=== PATIENT | female | born 1945 | race Hispanic/Latino ===

== ENCOUNTER 2017-09-01 16:32 | Emergency (ER) | payer MEDICARE ==
[~2017-09-01] VITALS: Ht 142.2 cm; Wt 55.8 kg
[2017-09-01] MEDS ORDERED: PANTOPRAZOLE SO40 MG PO ×2 (17:31→19:00)
[2017-09-01] MEDS ORDERED: DONEPEZIL PO (17:31)
[2017-09-01] MEDS ORDERED: LISINOPRIL10 MG PO (17:31)
[2017-09-01] MEDS ORDERED: VALTREX500 MG PO (17:31)
[2017-09-01] MEDS ORDERED: [UNRECOGNIZED DRUG - OTHER] PO (17:31)
[2017-09-01] MEDS ORDERED: IMITREX25 MG (17:31)
[2017-09-01 18:57] VITALS: BP 148/79
== END 2017-09-01 19:00 | disposition home or self-care (01) ==
LOC: FSED 16:32
DX: R10.12 Left upper quadrant pain (principal); K29.00 Acute gastritis without bleeding
CPT/HCPCS: 71045; 74177; 80053; 81003; 85025; 93005; 99284

== ENCOUNTER 2018-06-17 17:39 | Emergency (ER) | payer MEDICARE ==
[~2018-06-17] VITALS: Ht 142.2 cm; Wt 55.8 kg
[~2018-06-17 17:39] MED LIST: DONEPEZIL PO; IMITREX25 MG; LISINOPRIL10 MG PO; PANTOPRAZOLE SO40 MG PO; VALTREX500 MG PO; [UNRECOGNIZED DRUG - OTHER] PO
--- OUTSIDE RECORDS SUMMARY | 2018-06-17 17:43 | XMS REPORT | Clinical Summary ---
Author Author [facility] Address Unknown Phone Unavailable Care Team Providers Care Acid Maker Name Role Phone Sharpless PCP Allergies No Known Allergies Medications End Date Status Medication Sig Dispensed Refills Start Date Active donepezil (ARICEPT) 10 MG Take 10 mg by 0 tablet mouth nightly. Active pravastatin (PRAVACHOL) Take 10 mg by 0 10 MG tablet mouth daily. Active lisinopril Take 5 mg by 0 (PRINIVIL,ZESTRIL) 10 MG mouth daily . tablet Active nortriptyline (PAMELOR) Take 10 mg by 0 10 MG capsule mouth nightly Take 3 tablets every night . Active aspirin 81 MG chewable Take 81 mg by 0 tablet mouth daily. Active SUMAtriptan (IMITREX) 100 Take 100 mg 0 MG tablet by mouth as needed for Headaches. Active valACYclovir (VALTREX) Take 500 mg 0 500 MG tablet by mouth daily. Active ondansetron (ZOFRAN) 8 MG Take 8 mg by 0 tablet mouth every 8 (eight) hours as needed for Nausea. Active escitalopram oxalate TK 1 T PO QD 3 (LEXAPRO) 10 MG tablet 7 Active pimavanserin (NUPLAZID) Take 17 mg by 0 17 mg Tab mouth daily. Active HYDROcodone-acetaminophen Take 1 tablet 0 (NORCO 5-325) 5-325 mg by mouth per tablet every 6 (six) hours as needed for Pain. Active sulfamethoxazole-trimetho Take 1 tablet 0 prim (BACTRIM DS) 800-160 by mouth 2 mg per tablet (two) times daily. Active docusate sodium (COLACE) Take 100 mg 0 100 MG capsule by mouth 2 (two) times daily. 04/20/2018 acetaminophen (TYLENOL) Take 2 30 tablet 0 325 MG tablet tablets (650 8 mg total) by mouth every 6 (six) hours as needed for Pain for up to 360 days. 05/02/2018 pantoprazole (PROTONIX) Take 1 tablet 20 tablet 0 40 MG tablet (40 mg total) 8 by mouth daily. 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 Etiology is unclear but could be due to NAFLD. Her risk factors for NAFLD are obesity and hyperlipidemia. We will order comprehensive labs to look for other causes of cirrhosis. Regarding risk of surgery, patient doesn't have signs of decompensation or clinically significant portal HTN. She is Child-Best A. The 30 day mortality is estimated to be between 8-10%. The main risks for surgery will be bleeding and cirrhosis decompensation. Portal hypertension 04/02/2017 Last Assessment & Plan: Patient has mild splenomegaly and borderline thrombocytopenia, no sign of clinically significant portal HTN. Esophageal varices screening 04/02/2017 Last Assessment & Plan: Recent EUS did not show varices or signs of PHG. She will need a repeat EGD in 2-3 years. Immunity status testing 04/02/2017 Last Assessment & Plan: CDC recommends that all patients with chronic liver disease, regardless of etiology, should be immunized to prevent hepatitis A and hepatitis B if they are not already immune. This should be done in addition to other age-appropriate vaccines. We will test for immunity to both viruses - vaccine recommendations will follow. 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 Patient is following up with Dr. Rocha and Dr. Santamaria and plan is to do surgery and neoadjuvant chemoradiation. Screening for malignant neoplasm 04/02/2017 Last Assessment & Plan: Cirrhosis, regardless of etiology, is a risk factor for development of hepatocellular carcinoma (HCC). The annual incidence of HCC varies from 2-4%. 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 Family History Medical History Relation Name Comments Cancer Brother Diabetes Brother Hypertension Brother Diabetes Brother Hypertension Brother Diabetes Father Cancer Mother Diabetes Sister Relation Name Status Comments Brother Alive Brother Alive Father Mother Sister Alive Social History Date Tobacco Use Types Packs/Day Years Used Never Smoker Smokeless Tobacco: Never Used Alcohol Use Drinks/Week oz/Week Comments No Sex Assigned at Date Recorded Not on file Industry Job Start Date Occupation Not on file Not on file Not on file Travel End Travel History Travel Start No recent travel history available. Last Filed Vital Signs Not on file Plan of Treatment Not on file Implants Device Identifier Shelf Expiration Date Model / Serial / Lot Implanted Type Area Manufactur er 12/28/2018 [id number] / / [id number] Stent Bili Duodenal [id number] Stents-Per N/A: Bile Duct [place] - [id number] ipheral SCI:ENDO Implanted: Qty: 1 on 02/26/2017 by Meredith Dwyer MD Results Not on fileafter 06/16/2017 Insurance Payer Benefit Subscriber ID Type Phone Address Plan / Group MEDICARE MEDICARE A xxxxxxxxxx Medicare B MEDICAID - MEDICAID [facility] xxxxxxxxx Medicaid CARE COMM STAR Contracted PLAN Advance Directives Patient has advance care planning documents, and code status on file. For more i nformation, please contact: [address] [address] Date Inactivated Comments Code Status Date Activated 04/25/2017 6:23 PM Full Code 04/21/2017 8:59 PM This code status was determined by: Patient 04/21/2017 8:58 PM Full Code 04/21/2017 6:29 AM This code status was determined by: Patient 02/27/2017 7:36 PM Full Code 02/24/2017 10:22 PM This code status was determined by: Patient
--- OUTSIDE RECORDS SUMMARY | 2018-06-17 17:44 | XMS REPORT | Continuity of Care Document ---
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 [facility] Ruptured cerebral aneurysm<sup>1, 2</sup> Active 06/29/2011 Problem 06/25/2017 Data migrated from [employer] on 10/16/14. [facility] [place] Aneurysm Active Problem 07/14/2013 JENY Dumont Atherosclerosis of aorta<sup>1</sup> Active Problem 09/04/2017 seen on [facility] Chronic diastolic heart failure Active Problem 09/04/2017 [facility] Cirrhosis, non-alcoholic Active Problem 09/04/2017 [facility] Chronic GERD Active Problem 09/04/2017 [facility]ache [facility] SAH (<span ID="[id number]">Confirmed</span>) Resolved Problem 09/04/2017 [facility], Bj,[facility] [place] Herpes simplex Active Problem 09/04/2017 [facility] Hypertensive heart failure Active Problem 09/04/2017 [facility] Hyperlipemia, mixed Active Problem 09/04/2017 [facility] Alzheimer's dementia, late onset Active Problem 09/04/2017 [facility] 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 Problem 09/04/2017 [facility] Headache Active Problem 06/25/2017 JENY Dumont,[facility] HTN - Hypertension Active Problem 06/25/2017 JENY Dumont,[facility] HLD (<span ID="[id number]">Confirmed</span>) Resolved Problem 06/25/2017 [facility], [place] HTN (<span ID="[id number]">Confirmed</span>) Resolved Problem 06/25/2017 [facility], [place] Dementia Resolved Problem 06/25/2017 [facility], [place] SAH - Subarachnoid hemorrhage Active Problem 06/25/2017 JENY Dumont,[facility] Headache Active Problem 09/17/2016 JENY Dumont,[facility] HTN - Hypertension Active Problem 09/17/2016 JENY Dumont,[facility] SAH - Subarachnoid hemorrhage Active Problem 09/17/2016 JENY Dumont,[facility] Headache Active Problem 09/27/2016 JENY Dumont,[facility] HTN - Hypertension Active Problem 09/27/2016 JENY Dumont,[facility] SAH - Subarachnoid hemorrhage Active Problem 09/27/2016 JENY Dumont,[facility] Headache Active Problem 02/27/2017 JENY Dumont, [place] HTN - Hypertension Active Problem 02/27/2017 JENY Dumont, [place] SAH - Subarachnoid hemorrhage Active Problem 02/27/2017 JENY Dumont, [place] CHEST PAIN, UNSPECIFIED Active [facility] Medications Medication Details Route Status Patient Instructions Ordering Provider Order Date Source lisinopril 5 mg oral tablet 5 mg=1 tab, PO, Bedtime, for blood pressure, # 90 tab, 1 Refill(s), Pharmacy: [facility] [id number] Active 07/20/2017 [facility] pravastatin 10 mg oral tablet 10 mg=1 tab, PO, Bedtime, for cholesterol, # 90 tab, 3 Refill(s), Pharmacy: [place] [id number] Active 07/20/2017 [facility] ondansetron 4 mg oral tablet 4 mg=1 tab, PO, BID, # 10 tab, 0 Refill(s) Active 07/20/2017 [facility] meclizine 25 mg oral tablet 25 mg=1 tab, PO, TID, PRN for dizziness, X 20 day, # 60 tab, 0 Refill(s) Active 06/22/2017 [place] NS (Bolus) IV 500 mL, 500 ml/hr, Infuse Over: 1 hr, Route: IV, ONCE, Priority: STAT, Dosing Weight 60.004 kg, Start date: 06/22/17 16:05:00 CDT, Stop date: 06/22/17 16:05:00 CDT Inactive 06/22/2017 [facility] Saline Flush 0.9% 10 mL, Route: IVP, Drug Form: INJ, Dosing Weight 60.004, kg, PRN, PRN Line Flush, Start date: 06/22/17 11:02:00 CDT, Duration: 30 day, Stop date: 07/22/17 11:01:00 CDTNotes: (Same as: BD Posiflush) Inactive 06/22/2017 [facility] Docusate 100 mg, 1 cap, Route: PO, Drug form: CAP, BID, Dosing Weight 70.938, kg, Start date: 02/24/17 9:00:00 DINING ROOM COORDINATOR, Duration: 30 day, Stop date: 03/25/17 17:00:00 CSTNotes: (Same as: Colace) (Do Not Crush) Inactive 02/24/2017 [place] Protonix 40 mg, 1 tab, Route: PO, Drug form: ECTAB, Before Breakfast, Dosing Weight 70.938, kg, Start date: 02/24/17 7:30:00 DINING ROOM COORDINATOR, Duration: 30 day, Stop date: 03/25/17 7:30:00 CSTNotes: Tablet should not be c hewed or crushed. (Same as: Protonix) Inactive 02/24/2017 [place] Flagyl 500 mg, 100 mL, Route: IVPB, Drug form: INJ, Q8H, Dosing Weight 70.938, kg, Start date: 02/23/17 22:00:00 DINING ROOM COORDINATOR, Duration: 7 day, Stop date: 03/02/17 14:00:00 DINING ROOM COORDINATOR, ABX Indication: Intra-abdominal Infec tionNotes: (Same as: Flagyl) Avoid alcohol. No Longer Active 02/24/2017 [place] Ciprofloxacin 400 mg, 200 mL, Route: IVPB, Drug form: INJ, Q12H, Dosing Weight 70.938, kg, Start date: 02/23/17 21:00:00 DINING ROOM COORDINATOR, Duration: 7 day, Stop date: 03/02/17 9:00:00 DINING ROOM COORDINATOR, ABX Indication: Intra-abdominal Infec tionNotes: Do not refrigerate No Longer Active 02/24/2017 [place] Lexapro 10 mg, PO, Daily, 0 Refill(s) Active 02/24/2017 [place] valacyclovir 500 mg, PO, Daily, # 21 tab, 0 Refill(s) Active 02/24/2017 [place] Sodium Chloride 0.9% IV 1,000 mL 1,000 mL, Rate: 75 ml/hr, Infuse over: 13.3 hr, Route: IV, Dosing Weight 70.938 kg, Total Volume: 1,000, Start date: 02/23/17 19:48:00 DINING ROOM COORDINATOR, Duration: 30 day, Stop date: 03/25/17 19:47:00 DINING ROOM COORDINATOR, 1.76, m2 No Longer Active 02/24/2017 [place] Saline Flush 0.9% 10 ml, Route: IVP, Drug Form: INJ, Dosing Weight 70.938, kg, PRN, PRN Line Flush, Start date: 02/23/17 19:48:00 DINING ROOM COORDINATOR, Duration: 30 day, Stop date: 03/25/17 19:47:00 CSTNotes: (Same as: BD Posiflush) No Longer Active 02/24/2017 [place] Ondansetron 4 mg, 2 mL, Route: IVP, Drug form: INJ, Q6H, Dosing Weight 70.938, kg, PRN Nausea & Vomiting, Start date: 02/23/17 19:48:00 DINING ROOM COORDINATOR, Duration: 30 day, Stop date: 03/25/17 19:47:00 CSTNotes: (Same as: Zofran) MEDICATION WASTE Product Size: 4 mg Product Wasted: ___ mg No Longer Active 02/24/2017 [place] Morphine 2 mg, 1 mL, Route: IVP, Drug form: INJ, Q4H, Dosing Weight 70.938, kg, PRN Pain Score 7-10, Start date: 02/23/17 19:48:00 DINING ROOM COORDINATOR, Duration: 30 day, Stop date: 03/25/17 19:47:00 CSTNotes: (Same as:MORPhine Sulfate) No Longer Active 02/24/2017 [place] Zofran 4 mg, Route: IVP, Drug form: INJ, ONCE, Dosing Weight 70.938, kg, Priority: STAT, Start date: 02/23/17 18:01:00 DINING ROOM COORDINATOR, Stop date: 02/23/17 18:01:00 DINING ROOM COORDINATOR Inactive 02/24/2017 [place] Morphine 4 mg, Route: IVP, ONCE, Dosing Weight 70.938, kg, Priority: STAT, Start date: 02/23/17 18:01:00 DINING ROOM COORDINATOR, Stop date: 02/23/17 18:01:00 DINING ROOM COORDINATOR Inactive 02/24/2017 [place] Ondansetron 4 mg, Route: IVP, ONCE, Dosing Weight 70.938, kg, Priority: STAT, Start date: 02/23/17 14:57:00 DINING ROOM COORDINATOR, Stop date: 02/23/17 14:57:00 DINING ROOM COORDINATOR Inactive 02/23/2017 [place] Morphine 4 mg, Route: IVP, ONCE, Dosing Weight 70.938, kg, Priority: STAT, Start date: 02/23/17 14:57:00 DINING ROOM COORDINATOR, Stop date: 02/23/17 14:57:00 DINING ROOM COORDINATOR Inactive 02/23/2017 [place] Saline Flush 0.9% 10 mL, Route: IVP, Drug Form: INJ, Dosing Weight 70.938, kg, PRN, PRN Line Flush, Start date: 02/23/17 14:57:00 DINING ROOM COORDINATOR, Duration: 30 day, Stop date: 03/25/17 14:56:00 CSTNotes: (Same as: BD Posiflush) No Longer Active 02/23/2017 [place] Sodium Chloride 0.9% (Bolus) IV 1,000 mL, Infuse Over: 1 hr, Route: IV, ONCE, Priority: STAT, Dosing Weight 70.938 kg, Start date: 02/23/17 14:57:00 DINING ROOM COORDINATOR, Stop date: 02/23/17 14:57:00 DINING ROOM COORDINATOR Inactive 02/23/2017 [place] Pamelor 30 mg, 3 cap, Route: PO, Drug form: CAP, Bedtime, Start date: 02/17/17 21:00:00 DINING ROOM COORDINATOR, Duration: 30 day, Stop date: 03/18/17 21:00:00 CSTNotes: (Same as:Pamelor Aventyl) Inactive 02/18/2017 [place] Ondansetron 8 MG Disintegrating Tablet [Zofran] 8 mg=1 tab, PO, TID, PRN Nausea and Vomiting, Dissolve tab under tongue, # 10 tab, 0 Refill(s) Active 02/17/2017 [place] Metronidazole 500 MG Oral Tablet [Flagyl] 500 mg=1 tab, PO, Q8H, X 7 day, # 21 tab, 0 Refill(s) Active 02/17/2017 [place] Ciprofloxacin 500 MG Oral Tablet [Cipro] 500 mg=1 tab, PO, Q12H, X 7 day, # 14 tab, 0 Refill(s) Active 02/17/2017 [place] pantoprazole 40 mg oral enteric coated tablet 40 mg=1 tab, PO, Daily, # 30 tab, 0 Refill(s) Active 02/17/2017 [place] acetaminophen 325 mg oral tablet 650 mg=2 tab, PO, Q4H, PRN Pain 1-3/Temp > 100.4 F, 0 Refill(s) Active 02/17/2017 [place] Protonix 40 mg, Route: IVP, Drug form: INJ, Daily, Dosing Weight 71.5, kg, Start date: 02/17/17 9:00:00 DINING ROOM COORDINATOR, Duration: 30 day, Stop date: 03/18/17 9:00:00 CSTNotes: For IV push reconstitute with 10 ml 0.9% sodium chloride and push over 2 minutes. (Same as: Protonix) Inactive 02/17/2017 [facility] Lisinopril 10 mg, 1 tab, Route: PO, Drug form: TAB, Daily, Dosing Weight 71.5, kg, Start date: 02/17/17 9:00:00 DINING ROOM COORDINATOR, Duration: 30 day, Stop date: 03/18/17 9:00:00 CSTNotes: (Same as: Prinivil Zestril) Inactive 02/17/2017 [place] Insulin Lispro 8 unit, Route: SUB-Q, Q4H, Dosing Weight 71.5, kg, PRN Blood Glucose Results, Start date: 02/17/17 8:23:00 DINING ROOM COORDINATOR, Duration: 30 day, Stop date: 03/19/17 8:22:00 DINING ROOM COORDINATOR Inactive 02/17/2017 [place] Dextrose 50% Syringe 25 mL, Route: IVP, Dosing Weight 71.5, kg, PRN, PRN Blood Glucose Results, Start date: 02/17/17 8:23:00 DINING ROOM COORDINATOR, Duration: 30 day, Stop date: 03/19/17 8:22:00 DINING ROOM COORDINATOR Inactive 02/17/2017 [place] Glucagon 1 mg, Route: IM, PRN, Dosing Weight 71.5, kg, PRN Blood Glucose Results, Start date: 02/17/17 8:23:00 DINING ROOM COORDINATOR, Duration: 30 day, Stop date: 03/19/17 8:22:00 DINING ROOM COORDINATOR Inactive 02/17/2017 [place] Pamelor 25 mg, 1 cap, Route: PO, Drug form: CAP, ONCE, Start date: 02/16/17 22:00:00 DINING ROOM COORDINATOR, Stop date: 02/16/17 22:00:00 CSTNotes: (Same as:Pamelor, Aventyl) Inactive 02/17/2017 [place] donepezil 10 mg, 2 tab, Route: PO, Drug form: TAB, Bedtime, Dosing Weight 71.5, kg, Start date: 02/16/17 21:00:00 DINING ROOM COORDINATOR, Duration: 30 day, Stop date: 03/17/17 21:00:00 CSTNotes: (Same as: Aricept) No Longer Active 02/17/2017 [place] Nortriptyline 30 mg, 3 cap, Route: PO, Drug form: CAP, Bedtime, Dosing Weight 71.5, kg, Start date: 02/16/17 21:00:00 DINING ROOM COORDINATOR, Duration: 30 day, Stop date: 03/17/17 21:00:00 CSTNotes: (Same as:Pamelor, Aventyl) Inactive 02/17/2017 [place] Escitalopram 20 mg, 2 tab, Route: PO, Drug form: TAB, Daily, Dosing Weight 71.5, kg, Start date: 02/16/17 14:48:00 DINING ROOM COORDINATOR, Duration: 30 day, Stop date: 03/18/17 9:00:00 CSTNotes: (Same as: Lexapro) No Longer Active 02/16/2017 [place] glycopyrrolate (ANES) Route: IV, Drug form: INJ, ONCE, Stop date: 02/16/17 9:35:00 DINING ROOM COORDINATOR Inactive 02/16/2017 [place] phenylephrine (ANES) Route: IV, Drug form: INJ, ONCE, Stop date: 02/16/17 9:25:00 DINING ROOM COORDINATOR Inactive 02/16/2017 [place] glucagon (ANES) Route: IV, Drug form: INJ, ONCE, Stop date: 02/16/17 9:25:00 DINING ROOM COORDINATOR Inactive 02/16/2017 [place] lidocaine (ANES) Route: IV, Drug form: INJ, ONCE, Stop date: 02/16/17 9:15:00 DINING ROOM COORDINATOR Inactive 02/16/2017 [place] propofol (ANES) 10 mg Route: IV, Drug form: INJ, Start date: 02/16/17 8:43:00 DINING ROOM COORDINATOR, Stop date: 02/16/17 9:43:00 DINING ROOM COORDINATOR Inactive 02/16/2017 [place] sodium phosphate 45 mmol, 15 mL, Route: IVPB, PRN, Dosing Weight 71.5, kg, PRN Abnormal Lab Result, Start date: 02/16/17 4:28:00 DINING ROOM COORDINATOR, Duration: 30 day, Stop date: 03/18/17 4:27:00 DINING ROOM COORDINATOR, FOR ICU USE ONLY Inactive 02/16/2017 [place] potassium phosphate 15 mmol, 5 mL, Route: IVPB, PRN, Dosing Weight 71.5, kg, PRN Abnormal Lab Result, Start date: 02/16/17 4:28:00 DINING ROOM COORDINATOR, Duration: 30 day, Stop date: 03/18/17 4:27:00 DINING ROOM COORDINATOR, FOR ICU USE ONLYNotes: (Same as: K Phosphate.) 1 mMol phoshate has 1.47 mEq potassium Infuse over 4 hours Inactive 02/16/2017 [place] Calcium Gluconate 1 gm, 10 mL, Route: IVPB, PRN, Dosing Weight 71.5, kg, PRN Abnormal Lab Result, Start date: 02/16/17 4:28:00 DINING ROOM COORDINATOR, Duration: 30 day, Stop date: 03/18/17 4:27:00 DINING ROOM COORDINATOR, FOR ICU USE ONLYNotes: WASTE: F/P - Sink; E - Municipal Trash Bin Inactive 02/16/2017 [place] Calcium Carbonate 500 MG Chewable Tablet 500 mg, 1 tab, Route: PO, Drug form: CHEWTAB, PRN, Dosing Weight 71.5, kg, PRN Abnormal Lab Result, FOR ICU USE ONLY, Start date: 02/16/17 4:28:00 DINING ROOM COORDINATOR, Duration: 30 day, Stop date: 03/18/17 4:27:00 CSTNotes: (Same As: Tums) Calcium Carbonate 500 dg=613 mg elemental calcium Dose= mg calcium carbonate ( mg elemental calcium) Inactive 02/16/2017 [place] Potassium Chloride 20 mEq, 100 mL, Route: IVPB, Drug form: INJ, PRN, Dosing Weight 71.5, kg, PRN Abnormal Lab Result, Via central line, Start date: 02/16/17 4:28:00 DINING ROOM COORDINATOR, Duration: 30 day, Stop date: 03/18/17 4:27:00 DINING ROOM COORDINATOR, FOR ICU USE ONLYNotes: (Same as: KCL) Infuse no faster than 10 mEq/hr if given peripherally. Inactive 02/16/2017 [place] Magnesium Sulfate 2 gm, 50 mL, Route: IVPB, Drug form: INJ, PRN, Dosing Weight 71.5, kg, PRN Abnormal Lab Result, Start date: 02/16/17 4:28:00 DINING ROOM COORDINATOR, Duration: 30 day, Stop date: 03/18/17 4:27:00 DINING ROOM COORDINATOR, FOR ICU USE ONLYNotes: WASTE: F/P - Sink; E - Municipal Trutap Bin Inactive 02/16/2017 [place] Magnesium Oxide 800 mg, 2 tab, Route: PO, Drug form: TAB, PRN, Dosing Weight 71.5, kg, PRN Abnormal Lab Result, FOR ICU USE ONLY, Start date: 02/16/17 4:28:00 DINING ROOM COORDINATOR, Duration: 30 day, Stop date: 03/18/17 4:27:00 CSTNo jorge: (Same as: Mag-Ox 400) Magnesium oxide [id number] elemental magnesium Dose=____mg magnesium oxide (___mg elemental magnesium) Inactive 02/16/2017 [place] potassium phosphate-sodium phosphate 250 mg-280 mg-160 mg oral powder for reconstitution 2 pkt, Route: PO, Drug Form: PDR/REC, Dosing Weight 71.5, kg, PRN, PRN Abnormal Lab Result, FOR ICU USE ONLY, Start date: 02/16/17 4:28:00 DINING ROOM COORDINATOR, Duration: 30 day, Stop date: 03/18/17 4:27:00 CSTNotes: (Same as: Phos-NaK) Each 1.5 gm pkt has 250mg phosphorous. Mix w/2.5oz water and stir. Inactive 02/16/2017 [place] albumin human 5% intravenous solution 12.5 gm, 250 mL, 500 ml/hr, Route: IV, Drug Form: INJ, Dosing Weight 71.5, kg, ONCE, Start date: 02/16/17 3:00:00 DINING ROOM COORDINATOR, Stop date: 02/16/17 3:00:00 CSTNotes: LOT#: Mfg: WASTE: F/P - Red; E -Red (Same as: Albuminar) "blood product derivative" Inactive 02/16/2017 [place] albumin human 25% intravenous solution 12.5 gm, 50 mL, Route: IVPB, Drug form: INJ, ONCE, Dosing Weight 71.5, kg, Start date: 02/16/17 2:10:00 DINING ROOM COORDINATOR, Stop date: 02/16/17 2:10:00 CSTNotes: LOT#: Mfg: WASTE: F/P - Red; E -Red (Same as: Albuminar) "blood product derivative" Inactive 02/16/2017 [place] NS (Bolus) IV 1,000 mL, 1,000 ml/hr, Infuse Over: 1 hr, Route: IV, 1,000, Drug form: INJ, ONCE, Priority: STAT, Dosing Weight 71.5 kg, Start date: 02/16/17 1:09:00 DINING ROOM COORDINATOR, Stop date: 02/16/17 1:09:00 DINING ROOM COORDINATOR Inactive 02/16/2017 [place] Zosyn 3.375 gm, Route: IVPB, Q8H, Dosing Weight 71.5, kg, CrCl >=20 ml/min infuse over 4 hours, Start date: 02/15/17 22:00:00 DINING ROOM COORDINATOR, Duration: 10 day, Stop date: 02/25/17 14:00:00 DINING ROOM COORDINATOR, ABX Indication: Intra- abdominal InfectionNotes: (Same as: Zosyn) Dosing based on Piperacillin component MEDICATION WASTE Product Size: 3375 mg Product Wasted: ___ mg No Longer Active 02/16/2017 [place] heparin 5,000 unit, 1 mL, Route: SUB-Q, Drug form: INJ, Q12H, Dosing Weight 71.5, kg, Start date: 02/15/17 21:00:00 DINING ROOM COORDINATOR, Stop date: 03/17/17 9:00:00 CSTNotes: porcine heparin No Longer Active 02/16/2017 [place] Famotidine 20 mg, 2 mL, Route: IVP, Drug form: INJ, Q12H, Dosing Weight 71.5, kg, Start date: 02/15/17 21:00:00 DINING ROOM COORDINATOR, Duration: 30 day, Stop date: 03/17/17 9:00:00 CSTNotes: (Same as: Pepcid) Can be dilute in 5-10cc NS IVP: Slow IV push over at least 2 minutes. No Longer Active 02/16/2017 [place] normal saline 0.9% IV 1,000 mL 1,000 mL, Rate: 100 ml/hr, Infuse over: 10 hr, Route: IV, Dosing Weight 71.5 kg, Total Volume: 1,000, Start date: 02/15/17 16:36:00 DINING ROOM COORDINATOR, Duration: 30 day, Stop date: 03/17/17 16:35:00 DINING ROOM COORDINATOR, 1.77, m2 No Longer Active 02/15/2017 [place] Acetaminophen 325 MG / Hydrocodone Bitartrate 5 MG Oral Tablet 1 tab, Route: PO, Drug Form: TAB, Dosing Weight 71.5, kg, Q4H, PRN Pain Score 4-6, Start date: 02/15/17 16:34:00 DINING ROOM COORDINATOR, Duration: 30 day, Stop date: 03/17/17 16:33:00 CSTNotes: (Same as: [place] 325/5) Do not exceed 4gm/day of acetaminophen. No Longer Active 02/15/2017 [place] Acetaminophen 650 mg, 2 tab, Route: PO, Drug form: TAB, Q4H, Dosing Weight 71.5, kg, PRN Pain 1-3/Temp > 100.4 F, Start date: 02/15/17 16:34:00 DINING ROOM COORDINATOR, Duration: 30 day, Stop date: 03/17/17 16:33:00 CSTNotes: Do not exceed 4 gm/day. (Same as: Tylenol) No Longer Active 02/15/2017 [place] Ondansetron 4 mg, 2 mL, Route: IVP, Drug form: INJ, Q6H, Dosing Weight 71.5, kg, PRN Nausea & Vomiting, Start date: 02/15/17 16:34:00 DINING ROOM COORDINATOR, Duration: 30 day, Stop date: 03/17/17 16:33:00 CSTNotes: (Same as: Zofran) MEDICATION WASTE Product Size: 4 mg Product Wasted: ___ mg No Longer Active 02/15/2017 [place] Morphine 2 mg, 1 mL, Route: IVP, Drug form: INJ, Q4H, Dosing Weight 71.5, kg, PRN Pain Score 7-10, Start date: 02/15/17 16:34:00 DINING ROOM COORDINATOR, Duration: 30 day, Stop date: 03/17/17 16:33:00 CSTNotes: (Same as:MORPhine Sulfate) No Longer Active 02/15/2017 [place] Zosyn 3.375 gm, Route: IVPB, ONCE, Dosing Weight 70.1, kg, Priority: STAT, Start date: 02/15/17 13:58:00 DINING ROOM COORDINATOR, Stop date: 02/15/17 13:58:00 DINING ROOM COORDINATOR, ABX Indication: Intra-abdominal InfectionNotes: (Same as: Zosyn) Dosing based on Piperacillin component MEDICATION WASTE Product Size: 3375 mg Product Wasted: ___ mg Inactive 02/15/2017 [place] Sodium Chloride 0.9% (Bolus) IV 1,000 mL, 3000 ml/hr, Infuse Over: 20 minutes, Route: IV, 1,000, Drug form: INJ, ONCE, Priority: STAT, Dosing Weight 70.1 kg, Start date: 02/15/17 13:29:00 DINING ROOM COORDINATOR, Stop date: 02/15/17 13:29:00 DINING ROOM COORDINATOR Inactive 02/15/2017 [place] Ondansetron 4 mg, Route: IVP, ONCE, Dosing Weight 70.1, kg, Priority: STAT, Start date: 02/15/17 13:20:00 DINING ROOM COORDINATOR, Stop date: 02/15/17 13:20:00 DINING ROOM COORDINATOR Inactive 02/15/2017 [place] Famotidine 20 mg, 2 mL, Route: IVP, Drug form: INJ, ONCE, Dosing Weight 70.1, kg, Priority: STAT, Start date: 02/15/17 13:20:00 DINING ROOM COORDINATOR, Stop date: 02/15/17 13:20:00 CSTNotes: (Same as: Pepcid) Can be dilute in 5-10cc NS IVP: Slow IV push over at least 2 minutes. Inactive 02/15/2017 [place] Saline Flush 0.9% 10 mL, Route: IVP, Drug Form: INJ, Dosing Weight 70.1, kg, PRN, PRN Line Flush, Start date: 02/15/17 13:20:00 DINING ROOM COORDINATOR, Duration: 30 day, Stop date: 03/17/17 13:19:00 CSTNotes: (Same as: BD Posiflush) No Longer Active 02/15/2017 [place] Sodium Chloride 0.9% (Bolus) IV 1,000 mL, Infuse Over: 1 hr, Route: IV, ONCE, Priority: STAT, Dosing Weight 70.1 kg, Start date: 02/15/17 13:20:00 DINING ROOM COORDINATOR, Stop date: 02/15/17 13:20:00 DINING ROOM COORDINATOR Inactive 02/15/2017 [place] Morphine 4 mg, 1 mL, Route: IVP, Drug form: SOLN, ONCE, Dosing Weight 70.1, kg, Priority: STAT, Start date: 02/15/17 13:20:00 DINING ROOM COORDINATOR, Stop date: 02/15/17 13:20:00 CSTNotes: (Same as:MORPhine Sulfate) Inactive 02/15/2017 [place] Protonix 40 mg, 1 tab, Route: PO, Drug form: ECTAB, Before Dinner, Dosing Weight 70.636, kg, Start date: 09/14/16 16:30:00 CDT, Duration: 30 day, Stop date: 10/13/16 16:30:00 CDTNotes: Tablet should not be chewed or crushed. (Same as: Protonix) Inactive 09/14/2016 [facility] Streptococcus pneumoniae serotype 1 capsular antigen diphtheria [id number] protein conjugate vaccine / Streptococcus pneumoniae serotype 14 capsular antigen diphtheria [id number] protein conjugate vaccine / Streptococcus pneumoniae serotype 18C capsular antigen d 0.5 mL, Route: IM, Drug Form: INJ, Daily, Start date: 09/14/16 9:00:00 CDT, Duration: 1 doses or times, Stop date: 09/14/16 9:00:00 CDTNotes: Shake well prior to use (Same as: Prevnar 13) Inactive 09/14/2016 [facility] Lisinopril 10 mg, 1 tab, Route: PO, Drug form: TAB, Daily, Dosing Weight 70.636, kg, Start date: 09/14/16 9:00:00 CDT, Duration: 30 day, Stop date: 10/13/16 9:00:00 CDTNotes: (Same as: Prinivil, Zestril) Inactive 09/14/2016 [facility] Fluticasone propionate 0.05 MG/ACTUAT Metered Dose Nasal [place] 100 microgram, Route: NASAL, Drug Form: SPRY, Dosing Weight 70.636, kg, BID, Start date: 09/14/16 9:00:00 CDT, Duration: 30 day, Stop date: 10/13/16 17:00:00 CDTNotes: (Same as: Flonase) Inactive 09/14/2016 [facility] Escitalopram 20 mg, 2 tab, Route: PO, Drug form: TAB, Daily, Dosing Weight 70.636, kg, Start date: 09/14/16 9:00:00 CDT, Duration: 30 day, Stop date: 10/13/16 9:00:00 CDTNotes: (Same as: Lexapro) Inactive 09/14/2016 [facility] Aspirin 81 mg, 1 tab, Route: PO, Drug form: CHEWTAB, Daily, Dosing Weight 70.636, kg, Start date: 09/14/16 9:00:00 CDT, Duration: 30 day, Stop date: 10/13/16 9:00:00 CDTNotes: Take with food. Inactive 09/14/2016 [facility] Saline Flush 0.9% 10 ml, Route: IVP, Drug Form: INJ, Dosing Weight 70.636, kg, Q12H, Start date: 09/13/16 21:00:00 CDT, Duration: 30 day, Stop date: 10/13/16 9:00:00 CDTNotes: (Same as: BD Posiflush) No Longer Active 09/14/2016 [facility] Lipitor 80 mg, 1 tab, Route: PO, Drug form: TAB, Bedtime, Dosing Weight 70.636, kg, Start date: 09/13/16 21:00:00 CDT, Duration: 30 day, Stop date: 10/12/16 21:00:00 CDTNotes: Same as Lipitor No Longer Active 09/14/2016 [facility] Nortriptyline 30 mg, 3 cap, Route: PO, Drug form: CAP, Bedtime, Dosing Weight 70.636, kg, Start date: 09/13/16 21:00:00 CDT, Duration: 30 day, Stop date: 10/12/16 21:00:00 CDTNotes: (Same as:Pamelor, Aventyl) No Longer Active 09/14/2016 [facility] donepezil 10 mg, 2 tab, Route: PO, Drug form: TAB, Bedtime, Dosing Weight 70.636, kg, Start date: 09/13/16 21:00:00 CDT, Duration: 30 day, Stop date: 10/12/16 21:00:00 CDTNotes: (Same as: Aricept) No Longer Active 09/14/2016 [facility] Imitrex 100 mg, 4 tab, Route: PO, Drug form: TAB, ONCE, Dosing Weight 70.636, kg, Start date: 09/13/16 19:30:00 CDT, Stop date: 09/13/16 19:30:00 CDTNotes: (Same As: Imitrex) Inactive 09/14/2016 [facility] Sumatriptan 100 mg, 2 tab, Route: PO, Drug form: TAB, ONCE, Dosing Weight 70.636, kg, Start date: 09/13/16 18:35:00 CDT, Stop date: 09/13/16 18:35:00 CDTNotes: (Same As: Imitrex) Inactive 09/13/2016 [facility] albuterol 90 mcg/inh inhalation aerosol 2 puff, Route: INHALATION, Drug Form: AERO/A, Dosing Weight 70.636, kg, RQID, PRN Wheezing, Start date: 09/13/16 18:35:00 CDT, Duration: 30 day, Stop date: 10/13/16 18:34:00 CDTNotes: Same as: Ventolin HFA WASTE: Aerosol - Return to Pharmacy No Longer Active 09/13/2016 [facility] Saline Flush 0.9% 10 ml, Route: IVP, Drug Form: INJ, Dosing Weight 70.636, kg, PRN, PRN Line Flush, Start date: 09/13/16 18:33:00 CDT, Duration: 30 day, Stop date: 10/13/16 18:32:00 CDTNotes: (Same as: BD Posiflush) No Longer Active 09/13/2016 [facility] Nitroglycerin 0.4 mg, 1 tab, Route: SL, Drug form: TAB, Q5Min, Dosing Weight 70.636, kg, PRN Chest Pain, Start date: 09/13/16 18:33:00 CDT, Duration: 30 day, Stop date: 10/13/16 18:32:00 CDTNotes: (Same as:Nitroqu ick, Nitrostat) "Do Not Crush" Sublingual tablet No Longer Active 09/13/2016 [facility] Ondansetron 4 mg, 1 tab, Route: PO, Drug form: TAB, Q8H, Dosing Weight 70.636, kg, PRN Nausea & Vomiting, Start date: 09/13/16 18:33:00 CDT, Duration: 30 day, Stop date: 10/13/16 18:32:00 CDTNotes: (Same as: Zofran) No Longer Active 09/13/2016 [facility] nortriptyline 10 mg oral capsule 30 mg=3 cap, PO, Bedtime, 0 Refill(s) Active 09/13/2016 [facility] Fluticasone propionate 0.05 MG/ACTUAT Metered Dose Nasal [place] 2 spray, NASAL, BID, # 16 gm, 0 Refill(s) Active 09/13/2016 [facility] albuterol 90 mcg/inh inhalation aerosol 2 puff, INHALATION, QID, PRN Wheezing, # 17 gm, 0 Refill(s) Active 09/13/2016 [facility] lisinopril 10 mg oral tablet 10 mg=1 tab, PO, Daily, # 30 tab, 0 Refill(s) Active 09/13/2016 [facility] pravastatin 10 mg oral tablet 10 mg=1 tab, PO, Bedtime, # 30 tab, 0 Refill(s) Active 09/13/2016 [facility] donepezil 10 mg oral tablet 10 mg=1 tab, PO, Bedtime, 0 Refill(s) Active 09/13/2016 [facility] valacyclovir 500 MG Oral Tablet [Valtrex] 500 mg=1 tab, PO, Daily, # 30 tab, 0 Refill(s) Active 09/13/2016 [facility] Aspirin 81 mg, PO, Daily, 0 Refill(s) Active 09/13/2016 [facility] escitalopram 20 mg oral tablet 20 mg=1 tab, PO, Daily, # 30 tab, 0 Refill(s) Active 09/13/2016 [facility] pimavanserin 17 MG Oral Tablet [Nuplazid] 34 mg=2 tab, PO, Daily, 0 Refill(s) Active 09/13/2016 [facility] SUMAtriptan 100 mg oral tablet 100 mg=1 tab, PO, ONCE, PRN Headache, # 18 tab, 0 Refill(s) Active 09/13/2016 [facility] Aspirin 81 MG Chewable Tablet 324 mg, 4 tab, Route: PO, Drug form: [place], ONCE, Dosing Weight 69.091, kg, Priority: STAT, Start date: 09/13/16 15:56:00 CDT, Stop date: 09/13/16 15:56:00 CDTNotes: Take with food. Inactive 09/13/2016 [facility] Allergies, Adverse Reactions, Alerts Substance Category Reaction Severity Reaction type Status Date Reported Comments Source penicillins Assertion Drug allergy Active Medical Group Immunizations Immunization Date Given Site Status Last Updated Comments Source Hx influenza vaccine-unspecified 12/21/2016 completed [facility] pneumococcal 13-valent vaccine 09/14/2016 Right deltoid completed [facility], [place],[facility], [place] varicella virus vaccine 03/26/2016 completed [facility] Results Order Name Results Value Reference Range Date Interpretation Comments Source CARDIAC ENZYMES Troponin-I null 0.00 - 0.40 06/22/2017 [facility] CARDIAC ENZYMES Total CK 36 unit/L 12 - 191 06/22/2017 [facility] CARDIAC ENZYMES CK MB null 0.5 - 3.6 06/22/2017 [facility] CARDIAC ENZYMES CK MB Index null 0.0 - 2.5 06/22/2017 [facility] CHEM PANEL eGFR 67 mL/min/1.73m2 06/22/2017 Result Comment: The eGFR is calculated using the CKD-EPI formula. In most young, healthy individuals the eGFR will be >90 mL/min/1.73m2. The eGFR declines with age. An eGFR of 60-89 may be normal in some populations, particularly the elderly, for whom the CKD-EPI formula has not been extensively validated. Use of the eGFR is not recommended in the following populations: Individuals with unstable creatinine concentrations, including patients and those with serious co-morbid conditions. Patients with extremes in muscle mass or diet. The data above are obtained from the National Kidney Disease Education Program (NKDEP) which additionally recommends that when the eGFR is used in patients with extremes of body mass index for purposes of drug dosing, the eGFR should be multiplied by the estimated BMI. [facility] CHEM PANEL Globulin 4.4 g/dL 2.7 - 4.2 06/22/2017 [facility] CHEM PANEL A/G Ratio 0.7 0.7 - 1.6 06/22/2017 [facility] B/C Ratio 12 6 - 25 06/22/2017 [facility] CHEM PANEL AGAP 13.8 meq/L 10.0 - 20.0 06/22/2017 [facility] CHEM PANEL Bili Total 1.7 mg/dL 0.2 - 1.3 06/22/2017 [facility] CHEM PANEL Alk Phos 256 unit/L 39 - 136 06/22/2017 [facility] CHEM PANEL Glucose Lvl 126 mg/dL 70 - 99 06/22/2017 [facility]M PAN[facility] CO2 25 meq/L 24 - 32 06/22/2017 [facility] CHEM PANEL Total Protein 7.6 g/dL 6.4 - 8.4 06/22/2017 [facility] CHEM PANEL Calcium Lvl 8.7 mg/dL 8.5 - 10.5 06/22/2017 [facility] CHEM PANEL Potassium Lvl 3.8 meq/L 3.5 - 5.1 06/22/2017 [facility] CHEM PANEL Chloride Lvl 100 meq/L 95 - 109 06/22/2017 [facility] CHEM PANEL Sodium Lvl 135 meq/L 135 - 145 06/22/2017 [facility] CHEM PANEL Creatinine Lvl 0.89 mg/dL 0.50 - 1.40 06/22/2017 [facility] CHEM PANEL BUN 11 mg/dL 7 - 22 06/22/2017 [facility] CHEM PANEL AST 102 unit/L 0 - 37 06/22/2017 [facility] CHEM PANEL ALT 63 unit/L 0 - 65 06/22/2017 [facility] CHEM PANEL Albumin Lvl 3.2 g/dL 3.5 - 5.0 06/22/2017 [facility] CHEM PANEL Lipase Lvl 46 unit/L 73 - 393 06/22/2017 [facility] HEMATOLOGY PT 14.5 s 12.0 - 14.7 06/22/2017 [facility] HEMATOLOGY INR 1.13 0.85 - 1.17 06/22/2017 [facility] HEMATOLOGY RBC 3.93 M/CMM 4.20 - 5.40 06/22/2017 [facility] HEMATOLOGY Hgb 12.1 g/dL 12.0 - 16.0 06/22/2017 [facility] HEMATOLOGY WBC 6.5 K/CMM 3.7 - 10.4 06/22/2017 [facility] HEMATOLOGY MPV 7.8 fL 7.4 - 10.4 06/22/2017 [facility] HEMATOLOGY RDW 15.6 % 11.5 - 14.5 06/22/2017 [facility] HEMATOLOGY MCH 30.7 pg 27.0 - 31.0 06/22/2017 [facility] HEMATOLOGY MCHC 33.2 g/dL 32.0 - 36.0 06/22/2017 [facility] HEMATOLOGY Platelet 205 K/CMM 133 - 450 06/22/2017 [facility] HEMATOLOGY Hct 36.3 % 36.0 - 48.0 06/22/2017 [facility] HEMATOLOGY MCV 92.4 fL 80.0 - 98.0 06/22/2017 [facility] HEMATOLOGY PTT 28.8 s 22.9 - 35.8 06/22/2017 [facility] HEMATOLOGY Eosinophils # 0.1 K/CMM 0.0 - 0.5 06/22/2017 [facility] HEMATOLOGY Eosinophils 1.8 % 0.0 - 4.0 06/22/2017 [facility] HEMATOLOGY Segs-Bands # 4.8 K/CMM 1.5 - 8.1 06/22/2017 [facility] HEMATOLOGY Lymphocytes # 1.1 K/CMM 1.0 - 5.5 06/22/2017 [facility] HEMATOLOGY Basophils 0.3 % 0.0 - 1.0 06/22/2017 [facility] HEMATOLOGY Monocytes # 0.5 K/CMM 0.0 - 0.8 06/22/2017 [facility] HEMATOLOGY Lymphocytes 16.8 % 20.0 - 40.0 06/22/2017 [facility] HEMATOLOGY Segs 73.4 % 45.0 - 75.0 06/22/2017 [facility] HEMATOLOGY Monocytes 7.7 % 2.0 - 12.0 06/22/2017 [facility] URINE AND STOOL UA Leuk Est Negative (06/22/17 12:01 PM) Negative 06/22/2017 [facility] URINE AND STOOL UA Sq Epi Occasional /LPF Few /LPF 06/22/2017 [facility] URINE AND STOOL UA Urobilinogen 4.0 mg/dL 0.1 - 1.0 06/22/2017 [facility] URINE AND STOOL UA Nitrite Negative (06/22/17 12:01 PM) Negative 06/22/2017 [facility] URINE AND STOOL UA WBC 1 /HPF 0 - 5 06/22/2017 [facility] URINE AND STOOL UA RBC 1 /HPF 0 - 2 06/22/2017 [facility] URINE AND STOOL UA Bacteria Occasional /HPF None Seen /HPF 06/22/2017 [facility] URINE AND STOOL UA Glucose Negative mg/dL Negative mg/dL 06/22/2017 [facility] URINE AND STOOL UA Ketones Negative mg/dL Negative mg/dL 06/22/2017 [facility] URINE AND STOOL UA Protein Negative mg/dL Negative mg/dL 06/22/2017 [facility] URINE AND STOOL UA Bili Negative *NA* (06/22/17 12:01 PM) Negative 06/22/2017 [facility] URINE AND STOOL UA Blood Negative (06/22/17 12:01 PM) Negative 06/22/2017 [facility] URINE AND STOOL UA Color Yellow *NA* (06/22/17 12:01 PM) Yellow 06/22/2017 [facility] URINE AND STOOL UA pH 5.0 5.0 - 8.0 06/22/2017 [facility] URINE AND STOOL UA Spec Grav 1.006 <=1.030 06/22/2017 [facility] URINE AND STOOL UA Turbidity Clear (06/22/17 12:01 PM) Clear 06/22/2017 [facility] Brain wo contrast CT Brain wo contrast CT Patient Name: COLE HUDDLESTON : 1945; Age: 71 years y/o Female MR: [id number] Study: Brain wo contrast CT 06/22/2017 11:02 AM CDT Ordering Physician: Chucky Ramírez Clinical Indication: - Headache since yesterday, dizziness since this morning.; Comparison: 02/23/2017 TECHNIQUE: CT images were obtained from the foramen magnum to the vertex without the use of intravenous contrast on a multidetector CT. Coronal and sagittal reconstructions were obtained. CT radiation dose DLP: 835 mGy-cm FINDINGS: There is no evidence of acute intracranial hemorrhage, subacute territorial infarct, mass effect, midline shift, extra-axial fluid collection, hydrocephalus or other acute abnormalities. There is moderate generalized cerebral volume loss with associated ventricular prominence. There are moderate nonspecific supratentorial white matter ill- defined hypodensities likely representing chronic small vessel ischemic changes in this age. Moderate hypodensity in the right anterior frontal white matter may be related to prior ventriculostomy catheter placement. A smaller hypodense focus in the right parietal white matter likely related to old infarct. Embolization coils are seen in the right paraclinoid region. A right frontal makenzie holes present. There are calcifications in the carotid siphons and intradural vertebral arteries. The calvarium, paranasal sinuses and mastoids are unremarkable. If there is further concern for intracranial pathology or acute stroke, further assessment with an MRI of the brain should be considered. IMPRESSION: 1. No evidence of acute process. 2. Mild age-related changes. 3. Status post embolization of right paraclinoid aneurysm. 4. Chronic changes in the supratentorial white as described. ANABEL: RONALD 06/22/2017 - - Read by: Virginia Barrientos Dictated Date/time: 06/22/17 11:31 Electronically Signed by: Virginia Barrientos 06/22/17 11:34 FINAL REPORT [facility] Chest 2 views DX Chest 2 views DX Clinical Indication: - Dizziness Comparison: 02/23/2017 FINDINGS: PA and lateral views the chest are submitted for interpretation. The lungs are clear and there are no effusions. There is no visible pneumothorax. The cardiomediastinal contours are within normal limits. There are atherosclerotic calcifications in the aortic arch. There are no clinically significant osseous abnormalities noted. IMPRESSION: 1. No radiographic evidence of acute cardiopulmonary process. SL: [id number] 06/22/2017 - - Read by: Fidel Way MD Dictated Date/time: 06/22/17 11:13 Electronically Signed by: Fidel Way MD 06/22/17 11:14 [facility] eGFR 86 mL/min/1.73m2 02/24/2017 Result Comment: The eGFR is calculated using the CKD-EPI formula. In most young, healthy individuals the eGFR will be >90 mL/min/1.73m2. The eGFR declines with age. An eGFR of 60-89 may be normal in some populations, particularly the elderly, for whom the CKD-EPI formula has not been extensively validated. Use of the eGFR is not recommended in the following populations: Individuals with unstable creatinine concentrations, including patients and those with serious co-morbid conditions. Patients with extremes in muscle mass or diet. The data above are obtained from the National Kidney Disease Education Program (NKDEP) which additionally recommends that when the eGFR is used in patients with extremes of body mass index for purposes of drug dosing, the eGFR should be multiplied by the estimated BMI. [place] CHEM PANEL Glucose Lvl 118 mg/dL 70 - 99 02/24/2017 [place] CHEM PANEL Creatinine Lvl 0.72 mg/dL 0.50 - 1.40 02/24/2017 [place] CHEM PANEL Chloride Lvl 108 meq/L 95 - 109 02/24/2017 [place] CHEM PANEL BUN 4 mg/dL 7 - 22 02/24/2017 [place] CHEM PANEL Sodium Lvl 142 meq/L 135 - 145 02/24/2017 [place] CHEM PANEL Potassium Lvl 3.8 meq/L 3.5 - 5.1 02/24/2017 [place] CHEM PANEL Total Protein 6.4 g/dL 6.4 - 8.4 02/24/2017 [place] CHEM PANEL CO2 24 meq/L 24 - 32 02/24/2017 [place] CHEM PANEL Calcium Lvl 7.3 mg/dL 8.5 - 10.5 02/24/2017 [place] CHEM PANEL ALT 34 unit/L 0 - 65 02/24/2017 [place] CHEM PANEL AST 85 unit/L 0 - 37 02/24/2017 [place] CHEM PANEL Alk Phos 373 unit/L 39 - 136 02/24/2017 [place] CHEM PANEL Albumin Lvl 2.2 g/dL 3.5 - 5.0 02/24/2017 [place] CHEM PANEL Bili Total 4.5 mg/dL 0.2 - 1.3 02/24/2017 [place] CHEM PANEL AGAP 13.8 meq/L 10.0 - 20.0 02/24/2017 [place] CHEM PANEL B/C Ratio 6 6 - 25 02/24/2017 [place] CHEM PANEL Globulin 4.2 g/dL 2.7 - 4.2 02/24/2017 [place] CHEM PANEL A/G Ratio 0.5 0.7 - 1.6 02/24/2017 [place] CHEM PANEL Lipase Lvl 227 unit/L 73 - 393 02/23/2017 [place] CHEM PANEL eGFR 75 mL/min/1.73m2 02/23/2017 Result Comment: The eGFR is calculated using the CKD-EPI formula. In most young, healthy individuals the eGFR will be >90 mL/min/1.73m2. The eGFR declines with age. An eGFR of 60-89 may be normal in some populations, particularly the elderly, for whom the CKD-EPI formula has not been extensively validated. Use of the eGFR is not recommended in the following populations: Individuals with unstable creatinine concentrations, including patients and those with serious co-morbid conditions. Patients with extremes in muscle mass or diet. The data above are obtained from the National Kidney Disease Education Program (NKDEP) which additionally recommends that when the eGFR is used in patients with extremes of body mass index for purposes of drug dosing, the eGFR should be multiplied by the estimated BMI. [place] CHEM PANEL Calcium Lvl 8.4 mg/dL 8.5 - 10.5 02/23/2017 [place] CHEM PANEL Total Protein 7.9 g/dL 6.4 - 8.4 02/23/2017 [place] CHEM PANEL CO2 25 meq/L 24 - 32 02/23/2017 [place] CHEM PANEL Creatinine Lvl 0.80 mg/dL 0.50 - 1.40 02/23/2017 [place] CHEM PANEL Sodium Lvl 141 meq/L 135 - 145 02/23/2017 [place] CHEM PANEL Albumin Lvl 2.8 g/dL 3.5 - 5.0 02/23/2017 [place] CHEM PANEL ALT 40 unit/L 0 - 65 02/23/2017 [place] CHEM PANEL AST 108 unit/L 0 - 37 02/23/2017 [place] CHEM PANEL Potassium Lvl 3.7 meq/L 3.5 - 5.1 02/23/2017 [place] CHEM PANEL Chloride Lvl 107 meq/L 95 - 109 02/23/2017 [place] CHEM PANEL Bili Total 3.5 mg/dL 0.2 - 1.3 02/23/2017 [place] CHEM PANEL Alk Phos 485 unit/L 39 - 136 02/23/2017 [place] CHEM PANEL BUN 4 mg/dL 7 - 22 02/23/2017 [place] CHEM PANEL Glucose Lvl 119 mg/dL 70 - 99 02/23/2017 [place] CHEM PANEL Globulin 5.1 g/dL 2.7 - 4.2 02/23/2017 [place] CHEM PANEL A/G Ratio 0.5 0.7 - 1.6 02/23/2017 [place] CHEM PANEL AGAP 12.7 meq/L 10.0 - 20.0 02/23/2017 [place] CHEM PANEL B/C Ratio 5 6 - 25 02/23/2017 [place] HEMATOLOGY Eosinophils # 0.2 K/CMM 0.0 - 0.5 02/23/2017 [place] HEMATOLOGY Basophils # 0.0 K/CMM 0.0 - 0.2 02/23/2017 [place] HEMATOLOGY Monocytes # 0.4 K/CMM 0.0 - 0.8 02/23/2017 [place] HEMATOLOGY Lymphocytes # 1.2 K/CMM 1.0 - 5.5 02/23/2017 [place] HEMATOLOGY Segs-Bands # 3.2 K/CMM 1.5 - 8.1 02/23/2017 [place] HEMATOLOGY Basophils 0.3 % 0.0 - 1.0 02/23/2017 [place] HEMATOLOGY Eosinophils 3.9 % 0.0 - 4.0 02/23/2017 [place] HEMATOLOGY Segs 63.7 % 45.0 - 75.0 02/23/2017 [place] HEMATOLOGY Monocytes 7.5 % 2.0 - 12.0 02/23/2017 [place] HEMATOLOGY Lymphocytes 24.6 % 20.0 - 40.0 02/23/2017 [place] HEMATOLOGY PTT 35.4 s 22.9 - 35.8 02/23/2017 [place] HEMATOLOGY INR 1.10 0.85 - 1.17 02/23/2017 [place] HEMATOLOGY PT 14.2 s 12.0 - 14.7 02/23/2017 [place] HEMATOLOGY MPV 7.6 fL 7.4 - 10.4 02/23/2017 [place] HEMATOLOGY Platelet 158 K/CMM 133 - 450 02/23/2017 [place] HEMATOLOGY RDW 15.1 % 11.5 - 14.5 02/23/2017 [place] HEMATOLOGY MCHC 32.9 g/dL 32.0 - 36.0 02/23/2017 [place] HEMATOLOGY MCH 31.6 pg 27.0 - 31.0 02/23/2017 [place] HEMATOLOGY MCV 96.0 fL 80.0 - 98.0 02/23/2017 [place] HEMATOLOGY Hct 37.5 % 36.0 - 48.0 02/23/2017 [place] HEMATOLOGY Hgb 12.4 g/dL 12.0 - 16.0 02/23/2017 [place] HEMATOLOGY RBC 3.91 M/CMM 4.20 - 5.40 02/23/2017 [place] HEMATOLOGY WBC 5.0 K/CMM 3.7 - 10.4 02/23/2017 [place] URINE AND STOOL UA Mucus Few /LPF None Seen /LPF 02/23/2017 [place] URINE AND STOOL UA RBC null 0 - 2 02/23/2017 [place] URINE AND STOOL UA Bacteria Occasional /HPF None Seen /HPF 02/23/2017 [place] URINE AND STOOL UA Urobilinogen <=1.0 mg/dL 0.1 - 1.0 02/23/2017 [place] URINE AND STOOL UA Spec Grav 1.005 <=1.030 02/23/2017 [place] URINE AND STOOL UA Nitrite Negative (02/23/17 3:44 PM) Negative 02/23/2017 [facility] [place] URINE AND STOOL UA Bili Negative *NA* (02/23/17 3:44 PM) Negative 02/23/2017 [facility] [place] URINE AND STOOL UA Leuk Est Negative (02/23/17 3:44 PM) Negative 02/23/2017 [place] URINE AND STOOL UA Blood Negative (02/23/17 3:44 PM) Negative 02/23/2017 [facility] [place] URINE AND STOOL UA Ketones Negative mg/dL Negative mg/dL 02/23/2017 [place] URINE AND STOOL UA Glucose Negative mg/dL Negative mg/dL 02/23/2017 [facility] [place] URINE AND STOOL UA Sq Epi Occasional /LPF Few /LPF 02/23/2017 [facility] [place] URINE AND STOOL UA Protein Negative mg/dL Negative mg/dL 02/23/2017 [place] URINE AND STOOL UA pH 8.0 5.0 - 8.0 02/23/2017 [place] URINE AND STOOL UA Color Yellow *NA* (02/23/17 3:44 PM) Yellow 02/23/2017 [place] URINE AND STOOL UA Turbidity Clear (02/23/17 3:44 PM) Clear 02/23/2017 [place] ED Abdomen/Pelvis IV contrast only CT ED Abdomen/Pelvis IV contrast only CT CLINICAL HISTORY: - epigastric pain AGE: 71 years GENDER: Female TECHNIQUE: Contrast-enhanced CT of the abdomen and pelvis was performed. Multiplanar reconstructions were reviewed. A total of 100 cc of Omnipaque 300 was administered intravenously. AEC, mA /kV adjustment by patient size, and/or iterative reconstructive technique were used, per departmental dose-optimization program. Creatinine: 0.8 DLP: 1360.46 mGy-cm COMPARISON: CT abdomen pelvis 02/15/2017. ERCP: 02/16/2017 FINDINGS: The visualized lung bases are unremarkable. Mild to moderate intrahepatic biliary duct dilatation, slightly progressed. Stable pneumobilia within the range of normal given presence of indwelling CBD stent. Proximal stent tip in the distal CBD with distal stent tip in the 3rd portion of the duodenum. No pancreatic ductal dilatation. Splenomegaly. Adrenal glands are unremarkable.. The gallbladder is absent. Surgical clips are noted in the hepatic hilum compatible with previous cholecystectomy. . There is no CT evidence of hydronephrosis. There is no hydroureter. Both kidneys enhance symmetrically and excrete contrast promptly into nondilated collecting systems and ureters No significant retroperitoneal adenopathy is seen. There is moderate atherosclerotic calcification of the abdominal aorta. There is no evidence of abdominal aortic aneurysm. There is moderate diverticulosis of the sigmoid colon without diverticulitis.. The small bowel is normal in caliber without evidence of obstruction. The appendix is visualized without evidence of surrounding inflammatory change, dilatation or wall thickening. There is no significant free fluid in the abdomen or pelvis. The bladder is partially collapsed. No significant pelvic adenopathy is seen. Mild facet arthropathy in the lower lumbar spine. IMPRESSION: CBD stent in place with distal migration of the stent. The proximal tip is in the distal CBD and distal tip is in the 3rd portion of the duodenum. Mild to moderate intrahepatic biliary ductal dilatation, slightly progressed. 02/23/2017 - - Read by: Jose Enrique Holland MD Dictated Date/time: 02/23/17 17:52 Electronically Signed by: Jose Enrique Holland MD 02/23/17 18:04 FINAL REPORT [facility] Brain wo contrast CT Brain wo contrast CT Sex: Female. : 1945. TECHNIQUE: Axial scans of the brain without contrast including multiplanar computer-generated reformations. Total Dose Length Product: 362. This exam was performed according to our departmental dose optimization program which includes automated exposure control, adjustment of the mA and/or kV according to patient size and/or use of iterative reconstruction technique. Comparison studies: February 15, 2017. CLINICAL HISTORY: - headache. Scalp: Unremarkable. Intracranial mass: None. Intracranial density: Chronic white matter microvascular infarcts. Right frontal encephalomalacia with ex vacuo atrophy. Right parasellar aneurysm clip with artifact Intracranial hemorrhage: No intracranial hemorrhage. Extra-axial fluid collection: None. Midline shift: None Ventricles, subarachnoid spaces and sulci: Generally widened. Calvarium: Old makenzie hole defect in the right frontal. Orbits: Unremarkable. Incompletely imaged. Paranasal sinuses: Aerated. IMPRESSION: 1. No acute changes. 02/23/2017 - - Read by: Chaim Godfrey MD Dictated Date/time: 02/23/17 17:51 Electronically Signed by: Chaim Godfrey MD 02/23/17 17:54 FINAL REPORT [facility] Chest 1view DX Chest 1view DX EXAM: Chest x-ray, 1 view(s). CLINICAL HX: - chest pain. Age: 71 years. Gender: Female. COMPARISON: Chest x-ray: 09/15/2016. FINDINGS: Support apparatus: None. Cardiac silhouette: Unremarkable. Mediastinum: -- Agapito: Mild bronchial wall thickening. -- Other: None. Lungs: -- Consolidation: Negative. -- Pleural effusion: Negative. -- Pneumothorax: Negative. -- Other: Negative. Bones: Unremarkable. Other: None. IMPRESSION: 1. Mild bronchial wall thickening which can be seen with bronchitis/bronchiolitis, reactive airways disease, and mild interstitial edema. 02/23/2017 - - Read by: Joel Macias MD Dictated Date/time: 02/23/17 15:21 Electronically Signed by: Joel Macias MD 02/23/17 15:22 FINAL REPORT [place] CHEM PANEL Phosphorus 2.1 mg/dL 2.5 - 4.5 02/17/2017 [place] CHEM PANEL Magnesium Lvl 2.0 mg/dL 1.8 - 2.4 02/17/2017 [place] CHEM PANEL Bili Total 2.0 mg/dL 0.2 - 1.3 02/17/2017 [place] CHEM PANEL Alk Phos 250 unit/L 39 - 136 02/17/2017 [place] CHEM PANEL AST 60 unit/L 0 - 37 02/17/2017 [place] CHEM PANEL eGFR 87 mL/min/1.73m2 02/17/2017 Result Comment: The eGFR is calculated using the CKD-EPI formula. In most young, healthy individuals the eGFR will be >90 mL/min/1.73m2. The eGFR declines with age. An eGFR of 60-89 may be normal in some populations, particularly the elderly, for whom the CKD-EPI formula has not been extensively validated. Use of the eGFR is not recommended in the following populations: Individuals with unstable creatinine concentrations, including patients and those with serious co-morbid conditions. Patients with extremes in muscle mass or diet. The data above are obtained from the National Kidney Disease Education Program (NKDEP) which additionally recommends that when the eGFR is used in patients with extremes of body mass index for purposes of drug dosing, the eGFR should be multiplied by the estimated BMI. [place] CHEM PANEL BUN 7 mg/dL 7 - 22 02/17/2017 [place] CHEM PANEL Sodium Lvl 143 meq/L 135 - 145 02/17/2017 [place] CHEM PANEL Creatinine Lvl 0.71 mg/dL 0.50 - 1.40 02/17/2017 [place] CHEM PANEL Glucose Lvl 85 mg/dL 70 - 99 02/17/2017 [place] CHEM PANEL Total Protein 5.6 g/dL 6.4 - 8.4 02/17/2017 [place] CHEM PANEL CO2 26 meq/L 24 - 32 02/17/2017 [place] CHEM PANEL Calcium Lvl 7.1 mg/dL 8.5 - 10.5 02/17/2017 [place] CHEM PANEL Albumin Lvl 2.0 g/dL 3.5 - 5.0 02/17/2017 [place] CHEM PANEL Chloride Lvl 110 meq/L 95 - 109 02/17/2017 [place] CHEM PANEL ALT 47 unit/L 0 - 65 02/17/2017 [place] CHEM PANEL Potassium Lvl 3.7 meq/L 3.5 - 5.1 02/17/2017 [place] CHEM PANEL B/C Ratio 10 6 - 25 02/17/2017 [place] CHEM PANEL AGAP 10.7 meq/L 10.0 - 20.0 02/17/2017 [place] CHEM PANEL A/G Ratio 0.6 0.7 - 1.6 02/17/2017 [place] CHEM PANEL Globulin 3.6 g/dL 2.7 - 4.2 02/17/2017 [place] HEMATOLOGY Eosinophils # 0.2 K/CMM 0.0 - 0.5 02/17/2017 [place] HEMATOLOGY Basophils # 0.0 K/CMM 0.0 - 0.2 02/17/2017 [place] HEMATOLOGY Monocytes # 0.4 K/CMM 0.0 - 0.8 02/17/2017 [place] HEMATOLOGY Lymphocytes 20.7 % 20.0 - 40.0 02/17/2017 [place] HEMATOLOGY Segs 63.5 % 45.0 - 75.0 02/17/2017 [place] HEMATOLOGY Segs-Bands # 2.4 K/CMM 1.5 - 8.1 02/17/2017 [place] HEMATOLOGY Lymphocytes # 0.8 K/CMM 1.0 - 5.5 02/17/2017 [facility] [place] HEMATOLOGY Basophils 0.4 % 0.0 - 1.0 02/17/2017 [facility] HEMATOLOGY Eosinophils 5.3 % 0.0 - 4.0 02/17/2017 [facility] HEMATOLOGY Monocytes 10.1 % 2.0 - 12.0 02/17/2017 [facility] HEMATOLOGY MPV 7.9 fL 7.4 - 10.4 02/17/2017 [facility] HEMATOLOGY Platelet 101 K/CMM 133 - 450 02/17/2017 [facility] HEMATOLOGY RDW 14.7 % 11.5 - 14.5 02/17/2017 [facility] HEMATOLOGY MCHC 33.3 g/dL 32.0 - 36.0 02/17/2017 [facility] HEMATOLOGY MCH 31.5 pg 27.0 - 31.0 02/17/2017 [facility] HEMATOLOGY MCV 94.6 fL 80.0 - 98.0 02/17/2017 [facility] HEMATOLOGY Hct 28.9 % 36.0 - 48.0 02/17/2017 [facility] HEMATOLOGY Hgb 9.6 g/dL 12.0 - 16.0 02/17/2017 [facility] HEMATOLOGY WBC 3.8 K/CMM 3.7 - 10.4 02/17/2017 [facility] HEMATOLOGY RBC 3.06 M/CMM 4.20 - 5.40 02/17/2017 [facility] CHEM PANEL Magnesium Lvl 2.3 mg/dL 1.8 - 2.4 02/16/2017 [facility] PARATHYROID PROFILE Ca Norm WB 1.04 mMol/L 1.05 - 1.25 02/16/2017 [facility] PARATHYROID PROFILE Ca Ion WB 1.06 mMol/L 1.05 - 1.25 02/16/2017 [facility] ERCP Diagnostic DX ERCP Diagnostic DX ERCP, 02/16/2017 HISTORY: Bile duct obstruction. Compared to HIDA scan dated 02/15/[address] abdomen and pelvis with IV contrast dated 02/15/2017. Fluoroscopic time: 6 minutes. Films 10 Procedure was performed by Dr. Gilbert. Cholangiogram demonstrates mildly dilated common bile duct with focal narrowing of the distal common bile duct. Intrahepatic bile ducts are incompletely opacified. Sphincterotomy was performed with subsequent placement of guidewire and balloon catheter with removal of small common duct stone. Small plastic biliary stent was then inserted in good position. Review of CT of abdomen and pelvis with IV contrast dated 02/15/2017 demonstrates acute interstitial edematous pancreatitis involving the pancreatic head and uncinate process. The pancreatitis may explain the narrowed distal common bile duct seen on cholangiogram. Follow-up recommended. 02/16/2017 - - Read by: Mega Bowman MD Dictated Date/time: 02/16/17 10:02 Electronically Signed by: Mega Bowman MD 02/16/17 10:14 FINAL REPORT [place] Fluoroscopy assist to 1 hour DX Fluoroscopy assist to 1 hour DX No report is required for this exam. Technical component complete. 02/16/2017 - - Electronically Signed by: Valencia Hernandez RT 02/25/17 10:56 FINAL REPORT [place] BACTERIAL - SEROLOGY MRSA by PCR Negative (02/16/17 3:48 AM) 02/16/2017 [place] CHEM PANEL Magnesium Lvl 1.7 mg/dL 1.8 - 2.4 02/16/2017 [place] CHEM PANEL Lipase Lvl 3207 unit/L 73 - 393 02/16/2017 [place] CHEM PANEL Phosphorus 3.0 mg/dL 2.5 - 4.5 02/16/2017 [place] CHEM PANEL eGFR 70 mL/min/1.73m2 02/16/2017 Result Comment: The eGFR is calculated using the CKD-EPI formula. In most young, healthy individuals the eGFR will be >90 mL/min/1.73m2. The eGFR declines with age. An eGFR of 60-89 may be normal in some populations, particularly the elderly, for whom the CKD-EPI formula has not been extensively validated. Use of the eGFR is not recommended in the following populations: Individuals with unstable creatinine concentrations, including patients and those with serious co-morbid conditions. Patients with extremes in muscle mass or diet. The data above are obtained from the National Kidney Disease Education Program (NKDEP) which additionally recommends that when the eGFR is used in patients with extremes of body mass index for purposes of drug dosing, the eGFR should be multiplied by the estimated BMI. [place] CHEM PANEL Alk Phos 298 unit/L 39 - 136 02/16/2017 [place] CHEM PANEL Bili Total 2.1 mg/dL 0.2 - 1.3 02/16/2017 [place] CHEM PANEL AST 83 unit/L 0 - 37 02/16/2017 [place] CHEM PANEL ALT 57 unit/L 0 - 65 02/16/2017 [place] CHEM PANEL A/G Ratio 0.5 0.7 - 1.6 02/16/2017 [place] CHEM PANEL Globulin 3.8 g/dL 2.7 - 4.2 02/16/2017 [place] CHEM PANEL AGAP 11.0 meq/L 10.0 - 20.0 02/16/2017 [place] CHEM PANEL Total Protein 5.6 g/dL 6.4 - 8.4 02/16/2017 [place] CHEM PANEL B/C Ratio 13 6 - 25 02/16/2017 [place] CHEM PANEL Calcium Lvl 6.6 mg/dL 8.5 - 10.5 02/16/2017 Result Comment: Critical Result(s) called to Guera Devlin RN at 02/16/2017 04:27 by MACKENZIE. Read back OK. [place] CHEM PANEL CO2 24 meq/L 24 - 32 02/16/2017 [place] CHEM PANEL Albumin Lvl 1.8 g/dL 3.5 - 5.0 02/16/2017 [place] CHEM PANEL Chloride Lvl 115 meq/L 95 - 109 02/16/2017 [place] CHEM PANEL Glucose Lvl 99 mg/dL 70 - 99 02/16/2017 [place] CHEM PANEL BUN 11 mg/dL 7 - 22 02/16/2017 [place] CHEM PANEL Sodium Lvl 146 meq/L 135 - 145 02/16/2017 [place] CHEM PANEL Potassium Lvl 4.0 meq/L 3.5 - 5.1 02/16/2017 [place] CHEM PANEL Creatinine Lvl 0.85 mg/dL 0.50 - 1.40 02/16/2017 [place] HEMATOLOGY INR 1.31 0.85 - 1.17 02/16/2017 [place] HEMATOLOGY PT 16.4 s 12.0 - 14.7 02/16/2017 [place] HEMATOLOGY PTT 39.4 s 22.9 - 35.8 02/16/2017 [place] HEMATOLOGY Lymphocytes 20.0 % 20.0 - 40.0 02/16/2017 [place] HEMATOLOGY Segs 69.6 % 45.0 - 75.0 02/16/2017 [place] HEMATOLOGY Eosinophils 1.2 % 0.0 - 4.0 02/16/2017 [place] HEMATOLOGY Monocytes 8.9 % 2.0 - 12.0 02/16/2017 [place] HEMATOLOGY Basophils # 0.0 K/CMM 0.0 - 0.2 02/16/2017 [place] HEMATOLOGY Lymphocytes # 1.1 K/CMM 1.0 - 5.5 02/16/2017 [place] HEMATOLOGY Segs-Bands # 3.8 K/CMM 1.5 - 8.1 02/16/2017 [place] HEMATOLOGY Basophils 0.3 % 0.0 - 1.0 02/16/2017 [place] HEMATOLOGY Monocytes # 0.5 K/CMM 0.0 - 0.8 02/16/2017 [place] HEMATOLOGY Eosinophils # 0.1 K/CMM 0.0 - 0.5 02/16/2017 [place] HEMATOLOGY MPV 7.9 fL 7.4 - 10.4 02/16/2017 [place] HEMATOLOGY Platelet 103 K/CMM 133 - 450 02/16/2017 [place] HEMATOLOGY MCH 31.3 pg 27.0 - 31.0 02/16/2017 [place] HEMATOLOGY WBC 5.5 K/CMM 3.7 - 10.4 02/16/2017 [place] HEMATOLOGY RBC 3.20 M/CMM 4.20 - 5.40 02/16/2017 [place] HEMATOLOGY Hgb 10.0 g/dL 12.0 - 16.0 02/16/2017 [place] HEMATOLOGY MCV 93.4 fL 80.0 - 98.0 02/16/2017 [place] HEMATOLOGY RDW 14.5 % 11.5 - 14.5 02/16/2017 [place] HEMATOLOGY MCHC 33.5 g/dL 32.0 - 36.0 02/16/2017 [place] HEMATOLOGY Hct 29.9 % 36.0 - 48.0 02/16/2017 [facility] PARATHYROID PROFILE Ca Ion WB 0.95 mMol/L 1.05 - 1.25 02/16/2017 [place] PARATHYROID PROFILE Ca Norm WB 0.94 mMol/L 1.05 - 1.25 02/16/2017 [facility] LIPIDS Trig 122 mg/dL <=149 mg/dL 02/16/2017 [place] CHEM PANEL Lactic Acid Lvl 1.6 mMol/L 0.5 - 2.2 02/15/2017 [place] Gallbladder scan [facility] w meds [facility] CLINICAL HISTORY : , - acute pancreatitis and transaminitis EXAM : HIDA scan 02/15/2017 5:46 PM DINING ROOM COORDINATOR COMPARISON : CT abdomen and pelvis with contrast 02/15/2017 TECHNIQUE : Following the administration of 5.0 mCi of technetium 99m labeled Choletec, sequential images of the abdomen were obtained over a 90 minute period at 5 minute intervals. FINDINGS : There is normal uptake of radiopharmaceutical into the liver. There is progressive accumulation of radiopharmaceutical throughout the duration of the exam. There is a small amount of common bile duct activity identified at 58 minutes. There is gallbladder activity is not visualized. There is small bowel activity is not visualized. The duration of this exam. . IMPRESSION: Progressive accumulation of radiopharmaceutical within the liver with minimal excretion at 55 minutes. This is consistent with significant hepatocellular dysfunction. Distal common bile duct obstruction is also a consideration for this pattern. 02/15/2017 - - Read by: Crystal Roman MD Dictated Date/time: 02/15/17 21:03 Electronically Signed by: Crystal Roman MD 02/15/17 21:10 FINAL REPORT [place] URINE AND STOOL UA Sq Epi Occasional /LPF Few /LPF 02/15/2017 [place] URINE AND STOOL UA RBC 0-2 /HPF 0 - 2 02/15/2017 [place] URINE AND STOOL UA Bacteria None Seen (02/15/17 2:47 PM) None Seen 02/15/2017 [place] URINE AND STOOL UA Hyal Cast 0- 2 (02/15/17 2:47 PM) 0 - 2 02/15/2017 [place] URINE AND STOOL UA WBC 0-2 /HPF None Seen /HPF 02/15/2017 [place] URINE AND STOOL UA Trans Epi 0- 2 *ABN* (02/15/17 2:47 PM) 02/15/2017 [place] URINE AND STOOL UA Protein Negative (02/15/17 2:47 PM) Negative 02/15/2017 [place] URINE AND STOOL UA pH 7.0 5.0 - 8.0 02/15/2017 [place] URINE AND STOOL UA Spec Grav <=1.005
*NA*
(02/15/17 2:47 PM) <=1.030 02/15/2017 [place] URINE AND STOOL UA Glucose Negative (02/15/17 2:47 PM) Negative 02/15/2017 [place] URINE AND STOOL UA Ketones Negative *NA* (02/15/17 2:47 PM) Negative 02/15/2017 [place] URINE AND STOOL UA Blood Trace *ABN* (02/15/17 2:47 PM) Negative 02/15/2017 [place] URINE AND STOOL UA Bili Negative *NA* (02/15/17 2:47 PM) Negative 02/15/2017 [place] URINE AND STOOL UA Leuk Est Negative (02/15/17 2:47 PM) Negative 02/15/2017 [place] URINE AND STOOL UA Nitrite Negative (02/15/17 2:47 PM) Negative 02/15/2017 [place] URINE AND STOOL UA Urobilinogen 1.0 EU/dL 0.1 - 1.0 02/15/2017 [place] URINE AND STOOL UA Turbidity Clear (02/15/17 2:47 PM) Clear 02/15/2017 [place] URINE AND STOOL UA Color Yellow *NA* (02/15/17 2:47 PM) Yellow 02/15/2017 [place] CARDIAC ENZYMES Troponin-I null 0.00 - 0.40 02/15/2017 [place] CHEM PANEL Lactic Acid Lvl 3.5 mMol/L 0.5 - 2.2 02/15/2017 [place] CHEM PANEL eGFR 42 mL/min/1.73m2 02/15/2017 Result Comment: The eGFR is calculated using the CKD-EPI formula. In most young, healthy individuals the eGFR will be >90 mL/min/1.73m2. The eGFR declines with age. An eGFR of 60-89 may be normal in some populations, particularly the elderly, for whom the CKD-EPI formula has not been extensively validated. Use of the eGFR is not recommended in the following populations: Individuals with unstable creatinine concentrations, including patients and those with serious co-morbid conditions. Patients with extremes in muscle mass or diet. The data above are obtained from the National Kidney Disease Education Program (NKDEP) which additionally recommends that when the eGFR is used in patients with extremes of body mass index for purposes of drug dosing, the eGFR should be multiplied by the estimated BMI. [place] CHEM PANEL BUN 12 mg/dL 7 - 22 02/15/2017 [place] CHEM PANEL Creatinine Lvl 1.30 mg/dL 0.50 - 1.40 02/15/2017 [place] CHEM PANEL Glucose Lvl 183 mg/dL 70 - 99 02/15/2017 [place] CHEM PANEL Chloride Lvl 102 meq/L 95 - 109 02/15/2017 [place] CHEM PANEL Sodium Lvl 138 meq/L 135 - 145 02/15/2017 [place] CHEM PANEL CO2 23 meq/L 24 - 32 02/15/2017 [place] CHEM PANEL Potassium Lvl 4.0 meq/L 3.5 - 5.1 02/15/2017 [place] CHEM PANEL Calcium Lvl 8.2 mg/dL 8.5 - 10.5 02/15/2017 [place] CHEM PANEL Bili Total 1.8 mg/dL 0.2 - 1.3 02/15/2017 [place] CHEM PANEL AST 108 unit/L 0 - 37 02/15/2017 [place] CHEM PANEL Alk Phos 349 unit/L 39 - 136 02/15/2017 [place] CHEM PANEL ALT 70 unit/L 0 - 65 02/15/2017 [place] CHEM PANEL Total Protein 6.8 g/dL 6.4 - 8.4 02/15/2017 [place] CHEM PANEL Albumin Lvl 2.4 g/dL 3.5 - 5.0 02/15/2017 [place] CHEM PANEL AGAP 17.0 meq/L 10.0 - 20.0 02/15/2017 [place] CHEM PANEL B/C Ratio 9 6 - 25 02/15/2017 [place] CHEM PANEL Globulin 4.4 g/dL 2.7 - 4.2 02/15/2017 [place] CHEM PANEL A/G Ratio 0.5 0.7 - 1.6 02/15/2017 [place] HEMATOLOGY Monocytes 7.6 % 2.0 - 12.0 02/15/2017 [place] HEMATOLOGY Eosinophils 3.8 % 0.0 - 4.0 02/15/2017 [place] HEMATOLOGY Segs 48.3 % 45.0 - 75.0 02/15/2017 [place] HEMATOLOGY Lymphocytes 40.1 % 20.0 - 40.0 02/15/2017 [place] HEMATOLOGY Monocytes # 0.6 K/CMM 0.0 - 0.8 02/15/2017 [place] HEMATOLOGY Eosinophils # 0.3 K/CMM 0.0 - 0.5 02/15/2017 [facility] [place] HEMATOLOGY Lymphocytes # 3.4 K/CMM 1.0 - 5.5 02/15/2017 [place] HEMATOLOGY Segs-Bands # 4.1 K/CMM 1.5 - 8.1 02/15/2017 [place] HEMATOLOGY Basophils 0.2 % 0.0 - 1.0 02/15/2017 [place] HEMATOLOGY PT 14.5 s 12.0 - 14.7 02/15/2017 [place] HEMATOLOGY INR 1.13 0.85 - 1.17 [facility] 95.3 fL 80.0 - 98.0 [facility] RDW 14.2 % 11.5 - 14.5 [facility] MCH 31.2 pg 27.0 - 31.0 02/15/2017 [facility] HEMATOLOGY MCHC 32.7 g/dL 32.0 - 36.0 02/15/2017 [facility] HEMATOLOGY Hct 38.6 % 36.0 - 48.0 02/15/2017 [facility] HEMATOLOGY MPV 8.5 fL 7.4 - 10.4 02/15/2017 [facility] HEMATOLOGY Platelet 120 K/CMM 133 - 450 02/15/2017 [facility] HEMATOLOGY RBC 4.05 M/CMM 4.20 - 5.40 02/15/2017 [facility] HEMATOLOGY Hgb 12.6 g/dL 12.0 - 16.0 02/15/2017 [facility] HEMATOLOGY WBC 8.4 K/CMM 3.7 - 10.4 02/15/2017 [facility] HEMATOLOGY PTT 31.1 s 22.9 - 35.8 02/15/2017 [facility] VIRAL - SEROLOGY Influ B Negative (02/15/17 1:32 PM) Negative 02/15/2017 [facility] VIRAL - SEROLOGY Influ A Negative (02/15/17 1:32 PM) Negative 02/15/2017 [facility] CHEM PANEL Lipase Lvl 22340 unit/L 73 - 393 02/15/2017 [facility] Chest 1 v for Placement DX Chest 1 v for Placement DX : 1945. Technique: Portable AP chest x-ray. Comparison: 02/15/2017 at 1330. Clinical history: - Line Placement. Heart size: Normal. Lungs: No acute consolidation. Pleura: No pleural effusion. No pneumothorax. Mediastinum and agapito: Unremarkable. Musculoskeletal: Unremarkable. Support tubings: Right IJ catheter upper SVC. Impression: 1. No active disease in the chest. 02/15/2017 - - Read by: Chaim Godfrey MD Dictated Date/time: 02/15/17 14:46 Electronically Signed by: Chaim Godfrey MD 02/15/17 14:46 FINAL REPORT [facility] Brain wo contrast CT Brain wo contrast CT EXAMINATION: Noncontrast Head CT HISTORY: Headache; vomiting; abdominal pain; hypotension COMPARISON: 09/24/2016 TECHNIQUE: Noncontrast CT of the brain was performed with axial images acquired from skull base to vertex. Sagittal and coronal reconstructions were performed by the technologist and sent to the workstation for review. Total DLP is 644 mGy-cm. This exam was performed according to our departmental dose-optimization program which includes automated exposure control, adjustment of the mA and/or kV according to patient size and/or use of iterative reconstruction technique. FINDINGS: BRAIN: There are no acute intra or extra-axial fluid collections. 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 There is an unchanged area of gliosis within the right frontal lobe along the course of a prior right ventriculostomy shunt catheter. There is mild periventricular hypoattenuation. No mass effect or midline shift is present. The lloyd-white matter differentiation is otherwise normal. SKULL: No fractures are identified. VENTRICLES / SULCI / CISTERNS: Ventricles are of normal size, shape, and morphology. The basal cisterns are patent. ORBITS, PARANASAL SINUSES AND MASTOIDS: The visualized portions of the orbits, paranasal sinuses, and mastoids are normal. IMPRESSION: 1. No CT evidence of acute intracranial pathologic process. 2. Postoperative changes from prior right paraclinoid aneurysm coil embolization redemonstrated. 3. Unchanged area of gliosis within the right frontal lobe along the course of a prior right ventriculostomy shunt catheter. 02/15/2017 - - Read by: Miguel Angel Gonzalez MD Dictated Date/time: 02/15/17 14:22 Electronically Signed by: Miguel Angel Gonzalez MD 02/15/17 14:26 FINAL REPORT [facility] ED Abdomen/Pelvis IV contrast only CT ED Abdomen/Pelvis IV contrast only CT Sex: Female. : 1945. Technique: Axial scans through the abdomen and pelvis with intravenous contrast using 100 cc of Visipaque including multiplanar computer reformations. Multiphase axial data sets. Total Dose Length Product: 2050. This exam was performed according to our departmental dose optimization program which includes automated exposure control, adjustment of the mA and/or kV according to patient size and/or use of iterative reconstruction technique. Comparison studies: None. Clinical history: - 71-year-old female presenting to the emergency department with epigastric pain and vomiting. Findings: Liver: Relatively small, 11.7 cm. Fatty infiltration. Minimal central intrahepatic biliary dilatation. Questionable enhancing lesion in the dome of the right lobe of the liver 2.4 cm (series 2 image 11) versus fatty sparing. Seemingly associated with focal biliary dilatation. Subcapsular calcification in the right lobe noted Spleen: Enlarged spleen 14 cm. Gallbladder: Cholecystectomy. Bile ducts: 7 mm common bile duct. Pancreas: normal. Adrenal glands: Normal. Kidneys: Normal. Bladder: Bladder is empty and not further evaluated. Uterus: Anteverted. Uterine length: 5.1 cm. Adnexa: No adnexal mass. Large and small bowel: Sigmoid colonic diverticula. Thickening in the sigmoid attributed to muscular hypertrophy. No fat stranding or fluid. No intestinal dilatation or obstruction. Appendix: Normal. Stomach and duodenum: Unremarkable. Aorta and iliac arteries: Atherosclerotic calcification. Retroperitoneum: No mass or adenopathy Free fluid: None. Lung bases: Mild interstitial scarring. Musculature, abdominal wall and soft tissues: Normal Skeletal structures: Unremarkable. Noting incidental vertebral hemangioma at L1 Impression: 1. Small fatty liver with possible enhancing lesion or fatty sparing in the posterior upper right lobe. 2. Splenomegaly. 3. Diverticulosis and muscular hypertrophy. 02/15/2017 - - Read by: Chaim Godfrey MD Dictated Date/time: 02/15/17 14:23 Electronically Signed by: Chaim Godfrey MD 02/15/17 14:29 FINAL REPORT [facility] Chest 1view DX Chest 1view DX EXAM: Chest x-ray, 1 view(s). CLINICAL HX: - 71-year-old female complaining of abdominal pain vomiting and headache. Age: 71 years. Gender: Female. COMPARISON: Chest x-ray: 09/13/2016 and 06/28/2011. FINDINGS: Support apparatus: None. Cardiac silhouette: Unremarkable. Mediastinum: -- Agapito: Unremarkable. -- Other: None. Lungs: -- Consolidation: Negative. -- Pleural effusion: Negative. -- Pneumothorax: Negative. -- Other: Stable right upper lung millimetric calcified granuloma. Bones: Unremarkable. Other: None. IMPRESSION: 1. No acute cardiopulmonary process. 02/15/2017 - - Read by: Joel Macias MD Dictated Date/time: 02/15/17 13:41 Electronically Signed by: Joel Macias MD 02/15/17 13:43 FINAL REPORT [facility] ELECTROLYTES AGAP 11.0 meq/L 10.0 - 20.0 09/24/2016 [facility] ELECTROLYTES eGFR 62 mL/min/1.73m2 09/24/2016 Result Comment: The eGFR is calculated using the CKD-EPI formula. In most young, healthy individuals the eGFR will be >90 mL/min/1.73m2. The eGFR declines with age. An eGFR of 60-89 may be normal in some populations, particularly the elderly, for whom the CKD-EPI formula has not been extensively validated. Use of the eGFR is not recommended in the following populations: Individuals with unstable creatinine concentrations, including patients and those with serious co-morbid conditions. Patients with extremes in muscle mass or diet. The data above are obtained from the National Kidney Disease Education Program (NKDEP) which additionally recommends that when the eGFR is used in patients with extremes of body mass index for purposes of drug dosing, the eGFR should be multiplied by the estimated BMI. [facility] ELECTROLYTES Sodium Lvl 140 meq/L 135 - 145 09/24/2016 [facility] ELECTROLYTES Chloride Lvl 106 meq/L 95 - 109 09/24/2016 [facility] ELECTROLYTES CO2 27 meq/L 24 - 32 09/24/2016 [facility] ELECTROLYTES Potassium Lvl 4.0 meq/L 3.5 - 5.1 09/24/2016 [facility] ELECTROLYTES Calcium Lvl 8.5 mg/dL 8.5 - 10.5 09/24/2016 [facility] ELECTROLYTES Creatinine Lvl 0.94 mg/dL 0.50 - 1.40 09/24/2016 [facility] ELECTROLYTES Glucose Lvl 109 mg/dL 70 - 99 09/24/2016 [facility] ELECTROLYTES BUN 13 mg/dL 7 - 22 09/24/2016 [facility] MPV 8.1 fL 7.4 - 10.4 09/24/2016 [facility] Platelet 160 K/CMM 133 - 450 09/24/2016 [facility] Hct 40.8 % 36.0 - 48.0 09/24/2016 [facility] MCV 92.5 fL 80.0 - 98.0 09/24/2016 [facility] MCHC 33.4 g/dL 32.0 - 36.0 09/24/2016 [facility] RDW 13.6 % 11.5 - 14.5 09/24/2016 [facility] MCH 30.9 pg 27.0 - 31.0 09/24/2016 [facility] RBC 4.41 M/CMM 4.20 - 5.40 09/24/2016 [facility] Hgb 13.6 g/dL 12.0 - 16.0 09/24/2016 [facility] WBC 5.9 K/CMM 3.7 - 10.4 09/24/2016 [facility] Monocytes 11.2 % 2.0 - 12.0 09/24/2016 [facility] Lymphocytes 22.0 % 20.0 - 40.0 09/24/2016 [facility] Basophils 0.6 % 0.0 - 1.0 09/24/2016 [facility] Eosinophils 4.5 % 0.0 - 4.0 09/24/2016 [facility] Segs-Bands # 3.7 K/CMM 1.5 - 8.1 09/24/2016 [facility] Segs 61.7 % 45.0 - 75.0 09/24/2016 [facility] Lymphocytes # 1.3 K/CMM 1.0 - 5.5 09/24/2016 [facility] Eosinophils # 0.3 K/CMM 0.0 - 0.5 09/24/2016 [facility] Monocytes # 0.7 K/CMM 0.0 - 0.8 09/24/2016 [facility] URINE AND STOOL UA Urobilinogen <=1.0 mg/dL 0.1 - 1.0 09/24/2016 [facility] URINE AND STOOL UA Color Ltyellow 09/24/2016 [facility] URINE AND STOOL UA Leuk Est Large *ABN* (09/24/16 3:47 AM) Negative 09/24/2016 [facility] URINE AND STOOL UA RBC 2 /HPF 0 - 2 09/24/2016 [facility] URINE AND STOOL UA Turbidity Slight *ABN* (09/24/16 3:47 AM) Clear 09/24/2016 [facility] URINE AND STOOL UA Blood Negative (09/24/16 3:47 AM) Negative 09/24/2016 [facility] URINE AND STOOL UA Spec Grav 1.006 <=1.030 09/24/2016 [facility] URINE AND STOOL UA pH 7.0 5.0 - 8.0 09/24/2016 [facility] URINE AND STOOL UA Protein Negative mg/dL Negative mg/dL 09/24/2016 [facility] URINE AND STOOL UA Glucose Negative mg/dL Negative mg/dL 09/24/2016 [facility] URINE AND STOOL UA Ketones Negative mg/dL Negative mg/dL 09/24/2016 [facility] URINE AND STOOL UA Bili Negative *NA* (09/24/16 3:47 AM) Negative 09/24/2016 [facility] URINE AND STOOL UA Nitrite Negative (09/24/16 3:47 AM) Negative 09/24/2016 [facility] URINE AND STOOL UA Sq Epi Moderate /LPF Few /LPF 09/24/2016 [facility] URINE AND STOOL UA WBC 4 /HPF 0 - 5 09/24/2016 [facility] URINE AND STOOL UA Bacteria Occasional /HPF None Seen /HPF 09/24/2016 [facility] Brain wo contrast CT Brain wo contrast CT CT HEAD WITHOUT CONTRAST Clinical Indication: headache, history of SAH--pt arrives via [place] with reported SOB and AMS at home. family states pt was sleep in house and woke up hallucinating. EMS reports family wants to get her checked out, thinks anxiety attack. Comparison: CT 07/11/2013 TECHNIQUE: CT images were obtained from the foramen magnum to the vertex without the use of intravenous contrast on a multidetector CT. CT imaging was performed with exposure control parameters to reduce radiation dose. Coronal and sagittal reconstructions were obtained. CT radiation dose DLP: 859.11 mGy-cm FINDINGS: Postprocedural changes of prior right paraclinoid aneurysm coil embolization. Right frontal gliosis along prior right ventriculostomy shunt tract is again noted. Small area of white matter hypodensity again noted along the right parietal region, similar to before. There is no hemorrhage, extra-axial fluid collection, overt mass, midline shift or hydrocephalus. There is mild generalized cerebral volume loss. The visualized paranasal sinuses and mastoid air cells are clear. The calvarium and skull base are intact. IMPRESSION: No CT evidence of acute intracranial abnormality. Postprocedural changes of prior right paraclinoid aneurysm coil embolization.Chronic parenchymal findings as above. If clinical concern persists for acute pathology further evaluation with MRI brain can be obtained if clinically warranted. SL: [id number] 09/24/2016 - - Read by: Les Cotton MD Dictated Date/time: 09/24/16 03:53 Electronically Signed by: Les Cotton MD 09/24/16 04:00 FINAL REPORT [facility] CARDIAC ENZYMES Troponin-T null 0.000 - 0.100 09/14/2016 [facility] CARDIAC ENZYMES Troponin-I null 0.00 - 0.40 09/14/2016 [facility] CARDIAC ENZYMES Total CK 51 unit/L 12 - 191 09/14/2016 [facility] CARDIAC ENZYMES proBNP 25 pg/mL 0 - 125 09/14/2016 [facility] CARDIAC ENZYMES Troponin-I null 0.00 - 0.40 09/14/2016 [facility] CARDIAC ENZYMES Total CK 50 unit/L 12 - 191 09/14/2016 [facility] CARDIAC ENZYMES Troponin-T null 0.000 - 0.100 09/14/2016 [facility] CARDIAC ENZYMES Troponin-I null 0.00 - 0.40 09/13/2016 [facility] ELECTROLYTES AGAP 12.9 meq/L 10.0 - 20.0 09/13/2016 [facility] ELECTROLYTES eGFR 60 mL/min/1.73m2 09/13/2016 Result Comment: The eGFR is calculated using the CKD-EPI formula. In most young, healthy individuals the eGFR will be >90 mL/min/1.73m2. The eGFR declines with age. An eGFR of 60-89 may be normal in some populations, particularly the elderly, for whom the CKD-EPI formula has not been extensively validated. Use of the eGFR is not recommended in the following populations: Individuals with unstable creatinine concentrations, including patients and those with serious co-morbid conditions. Patients with extremes in muscle mass or diet. The data above are obtained from the National Kidney Disease Education Program (NKDEP) which additionally recommends that when the eGFR is used in patients with extremes of body mass index for purposes of drug dosing, the eGFR should be multiplied by the estimated BMI. [facility] ELECTROLYTES Chloride Lvl 104 meq/L 95 - 109 09/13/2016 [facility] ELECTROLYTES CO2 23 meq/L 24 - 32 09/13/2016 [facility] ELECTROLYTES Calcium Lvl 8.8 mg/dL 8.5 - 10.5 09/13/2016 [facility] ELECTROLYTES Glucose Lvl 143 mg/dL 70 - 99 09/13/2016 [facility] ELECTROLYTES BUN 20 mg/dL 7 - 22 09/13/2016 [facility] ELECTROLYTES Creatinine Lvl 0.97 mg/dL 0.50 - 1.40 09/13/2016 [facility] ELECTROLYTES Sodium Lvl 136 meq/L 135 - 145 09/13/2016 [facility] ELECTROLYTES Potassium Lvl 3.9 meq/L 3.5 - 5.1 09/13/2016 [facility] HEMATOLOGY RBC 4.44 M/CMM 4.20 - 5.40 09/13/2016 [facility] HEMATOLOGY Hgb 13.8 g/dL 12.0 - 16.0 09/13/2016 [facility] HEMATOLOGY Hct 41.2 % 36.0 - 48.0 09/13/2016 [facility] HEMATOLOGY MCV 92.7 fL 80.0 - 98.0 09/13/2016 [facility] HEMATOLOGY WBC 7.0 K/CMM 3.7 - 10.4 09/13/2016 [facility] HEMATOLOGY MCH 31.0 pg 27.0 - 31.0 09/13/2016 [facility] HEMATOLOGY MCHC 33.4 g/dL 32.0 - 36.0 09/13/2016 [facility] HEMATOLOGY RDW 13.5 % 11.5 - 14.5 09/13/2016 [facility] HEMATOLOGY Platelet 152 K/CMM 133 - 450 09/13/2016 [facility] HEMATOLOGY MPV 8.5 fL 7.4 - 10.4 09/13/2016 [facility] HEMATOLOGY Lymphocytes # 1.1 K/CMM 1.0 - 5.5 09/13/2016 [facility] HEMATOLOGY Monocytes # 0.3 K/CMM 0.0 - 0.8 09/13/2016 [facility] HEMATOLOGY Segs 78.6 % 45.0 - 75.0 09/13/2016 [facility] HEMATOLOGY Monocytes 4.7 % 2.0 - 12.0 09/13/2016 [facility] HEMATOLOGY Lymphocytes 16.0 % 20.0 - 40.0 09/13/2016 [facility] HEMATOLOGY Eosinophils 0.6 % 0.0 - 4.0 09/13/2016 [facility] HEMATOLOGY Segs-Bands # 5.5 K/CMM 1.5 - 8.1 09/13/2016 [facility] HEMATOLOGY Basophils 0.1 % 0.0 - 1.0 09/13/2016 [facility] Chest 2 views DX Chest 2 views DX EXAM: XR CHEST 2 VIEWS DATE: 09/13/2016 3:56 PM CDT INDICATION: - chest pain COMPARISON: June 2011 TECHNIQUE: PA and lateral chest radiographs FINDINGS: Lines and tubes: None. Lungs and pleura: No pulmonary or pleural based abnormality is identified. Heart and mediastinum: The heart size is normal for technique. The mediastinal contours are normal. Bones: No acute bony abnormality is identified. IMPRESSION: No acute cardiopulmonary abnormality. 09/13/2016 - - Read by: Manuel Luevano MD Dictated Date/time: 09/13/16 16:43 Electronically Signed by: Manuel Luevano MD 09/13/16 16:43 FINAL REPORT [facility] Brain wo contrast CT Brain wo contrast CT EXAM: CT BRAIN WITHOUT CONTRAST DATE: 07/11/2013 INDICATION: Subarachnoid hemorrhage TECHNIQUE: Noncontrast axial imaging was obtained from the vertex to the skull base and axial images were reconstructed using a bone algorithm. COMPARISON: CT brain from 07/07/2011 FINDINGS: Beam hardening artifact from right paraclinoid embolization coil. No acute hemorrhage, midline shift, or extra-axial collection. Encephalomalacia along a prior right frontal ventricular catheter tract and development of some right frontal and parietal periventricular and subcortical hypoattenuation. No evidence of acute infarction. Mild asymmetric prominence of the right lateral ventricle without evidence of hydrocephalus. No midline shift. Included paranasal sinuses and mastoid air cells are clear. IMPRESSION: Postembolization changes without acute intracranial abnormality. Development of chronic right frontal and parietal white matter ischemic changes. 07/11/2013 - - Read by: Shahid Issa MD Dictated Date/time: 07/11/13 14:01 Electronically Signed by: Shahid Issa MD 07/11/13 14:06 FINAL REPORT [facility] Vital Signs Vital Sign Value Date Comments Source Weight 58.864 07/20/2017 [facility] BMI Calculated 27.12 07/20/2017 [facility] Height 147.32 cm 07/20/2017 [facility] Systolic (mm Hg) 116 07/20/2017 [facility] Diastolic (mm Hg) 70 07/20/2017 [facility] Heart Rate 66 07/20/2017 [facility] Temperature Oral (F) 98.9 F 07/20/2017 [facility] Temperature Oral (F) 98.0 F 06/22/2017 [facility] Respitory Rate 16 06/22/2017 [facility] Systolic (mm Hg) 119 06/22/2017 [facility] Diastolic (mm Hg) 58 06/22/2017 [facility] Systolic (mm Hg) 108 06/22/2017 [facility] Diastolic (mm Hg) 56 06/22/2017 [facility] Respitory Rate 14 06/22/2017 [facility] Temperature Oral (F) 98.3 F 06/22/2017 [facility] Respitory Rate 15 06/22/2017 [facility] Systolic (mm Hg) 118 06/22/2017 [facility] Diastolic (mm Hg) 61 06/22/2017 [facility] Heart Rate 64 06/22/2017 [facility] Temperature Oral (F) 98.1 F 06/22/2017 [facility] Heart Rate 71 06/22/2017 [facility] Height 142.24 cm 06/22/2017 [facility] BMI Calculated 29.66 06/22/2017 [facility] Weight 60.004 06/22/2017 [place] Systolic (mm Hg) 121 02/24/2017 [place] Diastolic (mm Hg) 64 02/24/2017 [place] Heart Rate 73 02/24/2017 [place] Respitory Rate 18 02/24/2017 [place] Temperature Oral (F) 98.0 F 02/24/2017 [place] Respitory Rate 18 02/24/2017 [place] Systolic (mm Hg) 125 02/24/2017 [place] Diastolic (mm Hg) 70 02/24/2017 [place] Heart Rate 66 02/24/2017 [place] Temperature Oral (F) 98.3 F 02/24/2017 [place] Temperature Oral (F) 98.1 F 02/24/2017 [place] Heart Rate 66 02/24/2017 [place] Systolic (mm Hg) 111 02/24/2017 [facility] [place] Diastolic (mm Hg) 66 02/24/2017 [place] Respitory Rate 18 02/24/2017 [place] Height 142.24 cm 02/24/2017 [place] Weight 72.443 02/24/2017 [place] BMI Calculated 35.81 02/24/2017 [place] Weight 70.938 02/23/2017 [facility] [place] Systolic (mm Hg) 111 02/17/2017 [facility] [place] Diastolic (mm Hg) 70 02/17/2017 [place] Respitory Rate 23 02/17/2017 [place] Temperature Oral (F) 98.7 F 02/17/2017 [place] Respitory Rate 25 02/17/2017 [facility] [place] Systolic (mm Hg) 115 02/17/2017 [facility] [place] Diastolic (mm Hg) 88 02/17/2017 [place] Respitory Rate 18 02/17/2017 [place] Temperature Oral (F) 98.4 F 02/17/2017 [place] Systolic (mm Hg) 110 02/17/2017 [facility] [place] Diastolic (mm Hg) 58 02/17/2017 [place] Temperature Oral (F) 98.1 F 02/17/2017 [place] BMI Calculated 30.78 02/15/2017 [place] Height 152.4 cm 02/15/2017 [place] Weight 71.5 02/15/2017 [place] Heart Rate 92 02/15/2017 [place] Heart Rate 94 02/15/2017 [place] Heart Rate 93 02/15/2017 [place] Height 142.24 cm 02/15/2017 [place] BMI Calculated 34.65 02/15/2017 [place] Weight 70.1 02/15/2017 [place] Heart Rate 62 09/24/2016 [facility] Systolic (mm Hg) 134 09/24/2016 [facility] Diastolic (mm Hg) 68 09/24/2016 [facility] Respitory Rate 18 09/24/2016 [facility] Weight 72.727 09/24/2016 [facility] Temperature Oral (F) 97.8 F 09/24/2016 [facility] Height 149.86 cm 09/24/2016 [facility] Systolic (mm Hg) 143 09/24/2016 [facility] Diastolic (mm Hg) 74 09/24/2016 [facility] Respitory Rate 18 09/24/2016 [facility] Heart Rate 70 09/24/2016 [facility] BMI Calculated 32.38 09/24/2016 [facility] Respitory Rate 18 09/14/2016 [facility] Systolic (mm Hg) 148 09/14/2016 [facility] Diastolic (mm Hg) 79 09/14/2016 [facility] Temperature Oral (F) 97.1 F 09/14/2016 [facility] Heart Rate 61 09/14/2016 [facility] Heart Rate 65 09/14/2016 [facility] Systolic (mm Hg) 145 09/14/2016 [facility] Diastolic (mm Hg) 70 09/14/2016 [facility] Respitory Rate 18 09/14/2016 [facility] Systolic (mm Hg) 121 09/14/2016 [facility] Diastolic (mm Hg) 68 09/14/2016 [facility] Temperature Oral (F) 97.6 F 09/14/2016 [facility] Heart Rate 69 09/14/2016 [facility] Temperature Oral (F) 97.2 F 09/14/2016 [facility] Respitory Rate 18 09/14/2016 [facility] Height 142.24 cm 09/13/2016 [facility] BMI Calculated 34.91 09/13/2016 [facility] Weight 70.636 09/13/2016 [facility] Height 142.24 cm 09/13/2016 [facility] BMI Calculated 34.15 09/13/2016 [facility] Weight 69.091 09/13/2016 [facility] Encounters Location Location Details Encounter Type Encounter Number Reason For Visit Attending Provider ADM Date DC Date Status Source [facility] Outpatient Imaging [facility] Diag Services [id number] Brian Mckeon 07/11/2013 07/12/2013 [facility] Observation [id number] Olya Crain 09/13/2016 09/14/2016 [facility] Emergency [id number] Aminata Shellen 09/24/2016 09/24/2016 [facility] Inpatient [id number] Chinedu Gilbert 02/15/2017 02/17/2017 [facility] Inpatient [id number] Janette Potter 02/23/2017 02/25/2017 [facility] Emergency [id number] Baldomero Roche 06/22/2017 06/22/2017 [facility] Outpatient [id number] IRAM ARMANDO 07/20/2017 Active [facility] Primary Care [facility] Outpatient [id number] Iramroseanne Armando Jr 07/20/2017 07/21/2017 [facility] Phone Message [id number] 2017 07/29/2017 [facility] Outpatient [id number] AKUVI ELHOR GBITO 09/01/2017 Active [facility] Ambulatory Pre-Reg [id number] Akuvi Elhor Gbito 09/01/2017 09/01/2017 [facility] Procedures Procedure Code Date Perfomer Comments Source Cerebral angiogram<sup>1</sup> [id number] 06/29/2011 Cerebrak angiogram with coling [facility] Cerebral angiogram<sup>1</sup> [id number] 06/29/2011 Cerebrak angiogram with coling [facility] Cerebral angiogram<sup>1</sup> [id number] 06/29/2011 Cerebrak angiogram with coling [facility] Cerebral angiogram<sup>1</sup> [id number] 06/29/2011 Cerebrak angiogram with coling [facility] Cerebral angiogram<sup>1</sup> [id number] 06/29/2011 Cerebrak angiogram with coling [place] Cholecystectomy [id number] 06/23/1999 [facility] Cholecystectomy [id number] 06/23/1999 [facility] Cholecystectomy [id number] 06/23/1999 [place] Stent placement [id number] [facility] Tonsillectomy [id number] [facility] Whipple operation [id number] [facility] Stent placement [id number] [facility] Tonsillectomy [id number] [facility] Whipple operation [id number] [facility] Cholecystectomy [id number] [facility] Cholecystectomy [id number] [facility] Stent placement [id number] [place] Tonsillectomy [id number] [place]
--- OUTSIDE RECORDS SUMMARY | 2018-06-17 17:45 | XMS REPORT | Summary of Care ---
Author Author [facility] Primary Care [facility] Organization [facility] Address Unknown Phone Unavailable Encounter NICOLETTE Garland(FIN) [id number] Date(s): 09/01/17 - 09/01/17 [facility] [address] [address] [facility] [place] [address] 7584- [phone] Attending Physician: Jonny José MSN, RN, DUAL HOSE CEMENTER-C Vital Signs No data available for this section Problem List Condition Effective Dates Status Health Status Informant Atherosclerosis of Active aorta(Confirmed)1 Chronic diastolic Active heart failure(Confirmed) Cirrhosis, Active non-alcoholic(Confir med) Chronic Active GERD(Confirmed) Headache(Confirmed) Active SAH (subarachnoid Resolved hemorrhage)(Confirme d) Herpes Active simplex(Confirmed) Hypertensive heart Active failure(Confirmed) Hyperlipemia, Active mixed(Confirmed) Alzheimer's Active dementia, late onset(Confirmed) 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 3Data migrated from [employer] on 10/16/14. Allergies, Adverse Reactions, Alerts Substance Reaction Severity Status penicillins Active Medications No data available for this section Results No data available for this section Immunizations Given and Recorded Vaccine Date Status Refusal Reason Hx influenza vaccine-unspecified 12/21/16 Recorded pneumococcal 13-valent vaccine 09/14/16 Given varicella virus vaccine 03/26/16 Recorded Procedures Procedure Date Related Diagnosis Body Site Status Cerebral angiogram1 06/29/11 Completed Cholecystectomy 06/23/99 Completed Stent placement Completed Tonsillectomy Completed Whipple operation Completed 1Cerebrak angiogram with coling Social History Social History Type Response Substance Abuse Use: None. Employment/School Status: Retired. Alcohol Never Smoking Status Never smoker; Type: Cigarettes; Previous treatment: None; Ready to change: No; Concerns about tobacco use in household: No; Exposure to Tobacco Smoke None; Cigarette Smoking Last 365 Days No; Reg Smoking Cessation Counseling No entered on: 07/20/17 Assessment and Plan No data available for this section
--- NOTE | 2018-06-17 19:31 | Diagnostic Imaging Report ---
EXAMINATION: CT of the abdomen and pelvis with contrast. TECHNIQUE: Helical CT images of the abdomen and pelvis were performed from the lung bases to the lesser trochanters after the intravenous administration of 100 cc of Isovue 300 and the oral administration of none. Coronal and sagittal reformatted images were obtained.Dose modulation, iterative reconstruction, and/or weight based adjustment of the mA/kV was utilized to reduce the radiation dose to as low as reasonably achievable. COMPARISON: None. CLINICAL HISTORY:Abdominal pain, no other provided history DISCUSSION: ABDOMEN/PELVIS: LOWER THORAX:Unremarkable. HEPATOBILIARY: Cirrhotic morphology of the liver with enlargement of the left lobe and caudate. Mild hypodensities within the liver, largest in the left lobe measuring 0.8 cm. Cholecystectomy. Mild pneumobilia. SPLEEN: No splenomegaly. PANCREAS: Whipple procedure. ADRENALS: No adrenal nodules. KIDNEYS/URETERS: No hydronephrosis, stones, or solid mass lesions. PELVIC ORGANS/BLADDER: The bladder is normal. PERITONEUM/RETROPERITONEUM: Abdominal ascites. LYMPH NODES: No intra-abdominal, retroperitoneal, pelvic or inguinal lymphadenopathy. VESSELS: Scattered vascular calcifications. No high-grade stenosis. GI TRACT: Extensive colonic diverticulosis. No inflammatory change, however limited due to the ascites. Gastrojejunostomy. BONES AND SOFT TISSUE: No bony destructive lesions. No soft tissue abnormalities. IMPRESSION: Cirrhotic liver morphology with abdominopelvic ascites. Whipple procedure. Extensive colonic diverticulosis Signed by: Dr. Drew Perez M.D. on 06/17/2018 7:28 PM
== END 2018-06-17 20:06 | disposition home or self-care (01) ==
LOC: FSED 17:39
DX: R10.31 Right lower quadrant pain (principal); R10.11 Right upper quadrant pain
CPT/HCPCS: 74177; 80053; 81003; 85025; 99284